=== PATIENT | male | born 1955 | race African-American/Black ===

== ENCOUNTER 2016-12-25 10:21 | Observation (INO) | payer OTHER ==
[~2016-12-25] VITALS: Ht 172.7 cm; Wt 64.0 kg
[2016-12-25] VITALS (11 sets, daily range): BP systolic 158–199; BP diastolic 81–99; PULSE 83–92; RESP 16–18; TEMP 95.9–98.1; O2SAT 94–99
[~2016-12-25 10:21] MED LIST: ADVA100A INH; AMLO10TA2 PO; ASPI1TAB69 PO; ATOR40TA16 PO; CLOT1CRE6 TOPICAL; EMTR1TAB PO; INSU0.5M12; LANTUS2P SQ; LIDO1SOL8 SWISH-SWAL; LISI40TA PO; METO100T PO; NICO7DIS5 T-DERMAL; OLAN2.5T PO; PROT40TA PO
[2016-12-25 11:08] LABS: AUTOMATED NEUTROPHIL # 4.8 TH/MM3 (1.8-7.7); BASOPHIL % 0.3 % (0.0-2.0); EOSINOPHIL % 0.6 % (0.0-4.0); HEMATOCRIT 47.6 % (39.0-51.0); HEMO FLAGS DIFF FINAL; LYMPH % 22.9 % (9.0-44.0); LYMPHOCYTE # 1.6 TH/MM3 (1.0-4.8); MEAN CORPUSCULAR HEMOGLOBIN 26.6 PG (27.0-34.0); MEAN CORPUSCULAR HGB CONC 33.6 % (32.0-36.0); MONO % 8.2 % (0.0-8.0); PLATELET COUNT 183 TH/MM3 (150-450); RED BLOOD COUNT 6.03 MIL/MM3 (4.50-5.90); RED CELL DISTRIBUTION WIDTH 13.6 % (11.6-17.2)
[2016-12-25 11:15] LABS: APTT (PATIENT) 25.1 SEC (24.3-30.1); INTERNATIONAL NORMALIZED RATIO 0.9 RATIO; PROTHROMBIN TIME - PATIENT 10.1 SEC (9.8-11.6)
--- NOTE | 2016-12-25 11:20 | RADRPT ---
EXAM DATE/TIME: 12/25/2016 11:06 [facility] COMPARISON: No previous studies available for comparison. INDICATIONS : Left upper rib pain. Fall 2 weeks ago. MEDICAL HISTORY : Myocardial infarction. Chronic obstructive pulmonary disease. Hypercholestero lemia. Hypertension. HIV. Smoker. SURGICAL HISTORY : Colostomy. Bowel resection. Left above knee amputation. ENCOUNTER: Initial ACUITY: 2 weeks PAIN SCORE: 6/10 LOCATION: Left upper ribs FINDINGS: Multiple views of the left ribs were performed. There is no evidence of displaced fracture. No dest ructive lesions or areas of periosteal thickening are seen. Expiratory view of the chest is negative for pneumothorax. The mediastinal structures are midline. CONCLUSION: No acute rib fracture seen. Fransisco Carter MD on December 25, 2016 at 11:18 Board Certified Radiologist. This report was verified electronically.
[2016-12-25 12:20] LABS: ANION GAP 12 MEQ/L (5-15); AST (GOT) 13 U/L (15-37); BICARBONATE 20.5 MEQ/L (21.0-32.0); BLOOD UREA NITROGEN 26 MG/DL (7-18); CHLORIDE 101 MEQ/L (98-107); GLOMERULAR FILTRATION RATE 73 ML/MIN (>89); SODIUM (NA) 133 MEQ/L (136-145)
[2016-12-25 12:26] LABS: ALKALINE PHOSPHATASE 98 U/L (45-117); ALT (GPT) 26 U/L (12-78); TOTAL BILIRUBIN ADULT 0.5 MG/DL (0.2-1.0)
[2016-12-25 12:28] LABS: CREATINE KINASE 44 U/L (39-308)
--- NOTE | 2016-12-25 12:57 | PD ---
HPI Chief Complaint: Chest Pain Time Seen by Provider: 10:40 Travel History International Travel<30 days: No Contact w/Intl Traveler<30days: No Traveled to known affect area: No History of Present Illness HPI 61-year-old male complains of left-sided chest pain. Patient states that he fell on the left side 2 weeks ago. Patient states that he had persistent sharp pain localized left chest. Patient denies any pain radiation. Patient states the pain is worse with deep breathing. Patient denies any nausea vomiting diaphoresis. Patient states that he had intermittent coughing congestion. Patient denies any fever chills. Patient has history hypertension, diabetes, dyslipidemia. Patient is a smoker. On a scale of 1-10 the pain is a 9. Patient was admitted to [place] with chest pain in September and had a normal treadmill stress test and chemical stress test. Patient also has history HIV, left AKA. PFSH Past Medical History Asthma: Yes Autoimmune Disease: Yes (hiv+) Blood Disorders: No Heart Rhythm Problems: No Cancer: No Cardiac Catheterization: No Cardiovascular Problems: Yes High Cholesterol: Yes Chest Pain: Yes Congestive Heart Failure: No COPD: Yes Coronary Artery Disease: Yes Diabetes: Yes Patient Takes Glucophage: No Diminished Hearing: No Endocrine: Yes Gastrointestinal Disorders: Yes (colostomy and reversal) Genitourinary: No Hypertension: Yes Immune Disorder: Yes Musculoskeletal: Yes (LEFT AKA) Neurologic: No Psychiatric: No Reproductive: No Respiratory: Yes (COPD) Immunizations Current: Yes Sleep Apnea: No Thyroid Disease: No Influenza Vaccination: No Past Surgical History Abdominal Surgery: Yes (abd cyst removed 2008, BOWEL RESECTION, COLOSTOMY AND REVERSAL) Coronary Artery Bypass Graft: No Other Surgery: Yes (L BKA) Family History Family Myocardial Infarction: Yes Social History Alcohol Use: Yes (OCCASIONALLY) Tobacco Use: Yes (OCC) Substance Use: No (HX OF use cocaine daily) Allergies-Medications (Allergen,Severity, Reaction): Coded Allergies: Red Dyes - Various (Verified Allergy, Severe, Bradycardia, 09/19/16) Reported Meds & Prescriptions Reported Meds & Active Scripts Active Insulin Syringe/0.5ML/31G X 02/26" 1 Mis Mis 1 Box .ROUTE DIRECTED Reported Advair Diskus Inh (Fluticasone-Salmeterol Inh) 100-50 Mcg/Blist Aer 1 Puff INH BID Rinse mouth after use. Amlodipine (Amlodipine Besylate) 10 Mg Tab 10 Mg PO DAILY Aspirin 81 Mg Tabdr 81 Mg PO DAILY Atorvastatin (Atorvastatin Calcium) 40 Mg Tab 40 Mg PO HS Clotrimazole Anti-Fungal Topical (Clotrimazole) 1% Cream 1 Applic TOPICAL BID Truvada (Emtricitabine-Tenofovir Disoproxil Fumarate) 200-300 Mg Tab 1 Tab PO DAILY Lidocaine Viscous Liq 2 % Liqd 10 Ml SWISH-SWAL Q6HR PRN Lisinopril 40 Mg Tab 40 Mg PO DAILY Metoprolol Tartrate 100 Mg Tab 100 Mg PO BID Nicoderm CQ Patch (Nicotine) 7 Mg/24 Hr Patch 7 Mg T-DERMAL DAILY Olanzapine 2.5 Mg Tab 2.5 Mg PO HS Protonix (Pantoprazole Sodium) 40 Mg Tab 40 Mg PO DAILY Lantus Inj (Insulin Glargine) 1,000 Unit/10 Ml Vial 20 Units SQ BID Review of Systems General / Constitutional: No: Fever Eyes: No: Visual changes HENT: No: Headaches Cardiovascular: Positive: Chest Pain or Discomfort Respiratory: No: Shortness of Breath Gastrointestinal: No: Abdominal Pain Genitourinary: No: Dysuria Musculoskeletal: No: Pain Skin: No Rash Neurologic: No: Weakness Psychiatric: No: Depression Endocrine: No: Polydipsia Hematologic/Lymphatic: No: Easy Bruising Physical Exam Narrative GENERAL: Well-nourished, well-developed patient. SKIN: Warm and dry. HEAD: Normocephalic. EYES: No scleral icterus. No injection or drainage. NECK: Supple, trachea midline. No JVD or lymphadenopathy. CARDIOVASCULAR: Regular rate and rhythm without murmurs, gallops, or rubs. RESPIRATORY: Breath sounds equal bilaterally. No accessory muscle use. GASTROINTESTINAL: Abdomen soft, non-tender, nondistended. MUSCULOSKELETAL: Patient had reproducible moderate tenderness on palpation left chest wall. No crepitus no deformity. BACK: Nontender without obvious deformity. No CVA tenderness. Data Data Last Documented VS Vital Signs Date Time Temp Pulse Resp B/P Pulse Ox O2 Delivery O2 Flow Rate FiO2 12/25/16 11:14 83 16 178/99 98 Room Air 12/25/16 10:23 97.6 Orders Complete Blood Count With Diff (12/25/16 10:49) Comprehensive Metabolic Panel (12/25/16 10:49) Creatine Kinase (Cpk) (3/14/17 10:49) Troponin I (12/25/16 10:49) Prothrombin Time / Inr (Pt) (12/25/16 10:49) Act Partial Throm Time (Ptt) (12/25/16 10:49) Iv Access Insert/Monitor (12/25/16 10:49) Ecg Monitoring (12/25/16 10:49) Oximetry (12/25/16 10:49) Ribs, Uni (W/Exp Cxr-Min 3vw) (12/25/16 10:49) Electrocardiogram (12/25/16 08:38) Labs Laboratory Tests Test 12/25/16 12/25/16 10:53 11:40 White Blood Count 7.0 TH/MM3 Red Blood Count 6.03 MIL/MM3 Hemoglobin 16.0 GM/DL Hematocrit 47.6 % Mean Corpuscular Volume 79.0 FL Mean Corpuscular Hemoglobin 26.6 PG Mean Corpuscular Hemoglobin 33.6 % Concent Red Cell Distribution Width 13.6 % Platelet Count 183 TH/MM3 Mean Platelet Volume 9.4 FL Neutrophils (%) (Auto) 68.0 % Lymphocytes (%) (Auto) 22.9 % Monocytes (%) (Auto) 8.2 % Eosinophils (%) (Auto) 0.6 % Basophils (%) (Auto) 0.3 % Neutrophils # (Auto) 4.8 TH/MM3 Lymphocytes # (Auto) 1.6 TH/MM3 Monocytes # (Auto) 0.6 TH/MM3 Eosinophils # (Auto) 0.0 TH/MM3 Basophils # (Auto) 0.0 TH/MM3 CBC Comment DIFF FINAL Differential Comment Prothrombin Time 10.1 SEC Prothromb Time International 0.9 RATIO Ratio Activated Partial 25.1 SEC Thromboplast Time Sodium Level 133 MEQ/L Potassium Level 4.0 MEQ/L Chloride Level 101 MEQ/L Carbon Dioxide Level 20.5 MEQ/L Anion Gap 12 MEQ/L Blood Urea Nitrogen 26 MG/DL Creatinine 1.22 MG/DL Estimat Glomerular Filtration 73 ML/MIN Rate Random Glucose 376 MG/DL Calcium Level 9.2 MG/DL Total Bilirubin 0.5 MG/DL Aspartate Amino Transf 13 U/L (AST/SGOT) Alanine Aminotransferase 26 U/L (ALT/SGPT) Alkaline Phosphatase 98 U/L Total Creatine Kinase 44 U/L Troponin I 0.06 NG/ML Total Protein 9.0 GM/DL Albumin 3.4 GM/DL MDM Medical Decision Making Medical Screen Exam Complete: Yes Emergency Medical Condition: Yes Interpretation(s) 12:54 PM. X-ray left rib shows no acute bony injury. No hemopneumothorax. CBC within normal limit. Sodium 133. BUN 26. Glucose 376. Troponin 0.06. Differential Diagnosis Differential diagnosis including atypical chest pain, rib fracture, hemopneumothorax, angina, MA, PE, pneumothorax. Narrative Course 61-year-old male with left-sided chest pain. Status post fall. Diagnosis Primary Impression: Chest pain, atypical Additional Impression: Elevated troponin Hector Silva MD Dec 25, 2016 12:57
[2016-12-25] MEDS ORDERED: SODIUM CHLORIDE 0.9% FLUSH 5 ML FLUSH IV PRN (13:45)
[2016-12-25] MEDS ORDERED: DEXTROSE 50% IN WATER 50 ML VIAL(D50) IV PUSH PRN (14:00)
[2016-12-25] MEDS ORDERED: GLUCAGON 1 MG/ML VIAL OTHER PRN (14:00)
[2016-12-25] MEDS: NICOTINE 21 MG/24 HR PATCH TD SCH (14:04)
[2016-12-25] MEDS: HEPARIN SODIUM - SQ 10,000 UNITS/ML VIAL SQ SCH ×2 (14:09→21:22)
--- NOTE | 2016-12-25 14:39 | HHI.HP ---
[facility] Service Family Medicine Primary Care Physician Steve Bucio MD Admission Diagnosis chest pain. Elevated troponin. Diagnoses: International Travel<30 Days: No Contact w/Intl Traveler<30days: No Known Affected Area: No History of Present Illness Mr. Dumont is a 61 year old male with a history of HIV, T2DM, HTN, HLP, and L AKA. Presented to the [place] ED with complaints of left-sided chest pain. Patient reports that he fell while crossing the street in his wheelchair 2 weeks ago. He hit a curb and fell out of the chair, he hit his left elbow chest and head during this fall. He says he has had a persistent sharp pain in his left chest since this fall. He denies any radiating pain to his shoulder or arm or jaw. He denies any nausea vomiting or diaphoresis with these symptoms. He also is complaining about severe headache that has been occurring since the fall, and worsened vision. He is not completely certain if the vision is worse because he's been without his glasses for quite some time. The leg pain is consistent on the left occipital region of his head, this is where he hit his head when he fell. He has been mildly confused since the fall as well. Of note patient has been recently hospitalized in September for chest pain with normal treadmill test and chemical stress test Review of Systems Constitutional: COMPLAINS OF: Dizziness, DENIES: Diaphoretic episodes, Fever, Weight gain, Weight loss, Change in appetite Eyes: COMPLAINS OF: Blurred vision, Vision loss, DENIES: Eye pain, Photosensitivity, Double Vision Ears, nose, mouth, throat: DENIES: Tinnitus, Hearing loss, Throat pain, Hoarseness, Ear Pain, Running Nose, Sinus Pain, Toothache Respiratory: COMPLAINS OF: Cough, Shortness of breath, DENIES: Wheezing, Sputum production Cardiovascular: COMPLAINS OF: Chest pain, Dyspnea on Exertion, DENIES: Syncope , Lower Extremity Edema Gastrointestinal: DENIES: Abdominal pain, Diarrhea, Nausea, Vomiting Musculoskeletal: COMPLAINS OF: Joint pain, Stiffness, Neck pain, DENIES: Back pain Integumentary: DENIES: Rash Hematologic/lymphatic: DENIES: Bruising Immunologic/allergic: DENIES: Eczema Neurologic: COMPLAINS OF: Headache, DENIES: Abnormal gait, Localized weakness , Seizures, Speech Problems, Tremor, Poor Balance Psychiatric: DENIES: Anxiety, Depression Other AKA pain Past Family Social History Past Medical History Past Medical History: HIV HTN Hyperlipidemia Type 2 Diabetes Asthma COPD (per EMR, patient is unsure) Tobacco abuse Left above knee amputation (secondary to unspecified complication of DM) Unspecified back pain (sees pain management) Past Surgical History Patient reports unspecified abdominal surgery, patient states that he had a colon resection (per EMR- 2008 abdominal cyst removal with resection, ostomy, and subsequent reversal) Left above knee amputation Reported Medications Reported Meds & Active Scripts Active Insulin Syringe/0.5ML/31G X 02/26" 1 Mis Mis 1 Box .ROUTE DIRECTED Reported Advair Diskus Inh (Fluticasone-Salmeterol Inh) 100-50 Mcg/Blist Aer 1 Puff INH BID Rinse mouth after use. Amlodipine (Amlodipine Besylate) 10 Mg Tab 10 Mg PO DAILY Aspirin 81 Mg Tabdr 81 Mg PO DAILY Atorvastatin (Atorvastatin Calcium) 40 Mg Tab 40 Mg PO HS Clotrimazole Anti-Fungal Topical (Clotrimazole) 1% Cream 1 Applic TOPICAL BID Truvada (Emtricitabine-Tenofovir Disoproxil Fumarate) 200-300 Mg Tab 1 Tab PO DAILY Lidocaine Viscous Liq 2 % Liqd 10 Ml SWISH-SWAL Q6HR PRN Lisinopril 40 Mg Tab 40 Mg PO DAILY Metoprolol Tartrate 100 Mg Tab 100 Mg PO BID Nicoderm CQ Patch (Nicotine) 7 Mg/24 Hr Patch 7 Mg T-DERMAL DAILY Olanzapine 2.5 Mg Tab 2.5 Mg PO HS Protonix (Pantoprazole Sodium) 40 Mg Tab 40 Mg PO DAILY Lantus Inj (Insulin Glargine) 1,000 Unit/10 Ml Vial 20 Units SQ BID Allergies: Coded Allergies: Red Dyes - Various (Verified Allergy, Severe, Bradycardia, 09/19/16) Family History Noncontributory Social History Tobacco- ~37 years smoking, varied PPD based on finances (3cig- 1+ pks) Alcohol- 2-3 beers a day currently, patient reports previous frequent consumption Illicit Drugs- per EMR, crack cocaine and marijuana Patient lives with his sister, gets assistance from her Physical Exam Vital Signs Vital Signs Date Time Temp Pulse Resp B/P Pulse Ox O2 Delivery O2 Flow Rate FiO2 12/25/16 14:03 84 16 199/96 97 Room Air 12/25/16 11:14 83 16 178/99 98 Room Air 12/25/16 10:41 85 16 191/93 98 12/25/16 10:35 86 16 191/93 Room Air 12/25/16 10:23 97.6 87 16 180/87 99 Physical Exam GENERAL: This is a well-nourished, well-developed patient, in no apparent distress. SKIN: No rashes, ecchymoses or lesions. Cool and dry. HEAD: Atraumatic. Normocephalic. Scalp tenderness in the left occipital region. EYES: Pupils equal round and reactive. Extraocular motions intact. No scleral icterus. No injection or drainage. ENT: Nose without bleeding, purulent drainage or septal hematoma. Throat without erythema, tonsillar hypertrophy or exudate. Poor dentition Uvula midline. Airway patent. NECK: Trachea midline. No JVD or lymphadenopathy. Supple, nontender, no meningeal signs. CARDIOVASCULAR: Regular rate and rhythm without murmurs, gallops, or rubs. Tender to palpation, illicits this sharp pain the patient is complaining about, RESPIRATORY: Clear to auscultation. Breath sounds equal bilaterally. No wheezes , rales, or rhonchi. GASTROINTESTINAL: Abdomen soft, non-tender, nondistended. No hepato-splenomegaly , or palpable masses. No guarding. MUSCULOSKELETAL: Left AKA. Extremities without clubbing, cyanosis, or edema. No joint tenderness, effusion, or edema noted. No calf tenderness. Negative Homans sign bilaterally. NEUROLOGICAL: Awake and alert and oriented 3. Cranial nerves II through XII grossly intact. Normal speech. Laboratory Laboratory Tests Test 12/25/16 12/25/16 10:53 11:40 White Blood Count 7.0 Red Blood Count 6.03 Hemoglobin 16.0 Hematocrit 47.6 Mean Corpuscular Volume 79.0 Mean Corpuscular Hemoglobin 26.6 Mean Corpuscular Hemoglobin 33.6 Concent Red Cell Distribution Width 13.6 Platelet Count 183 Mean Platelet Volume 9.4 Neutrophils (%) (Auto) 68.0 Lymphocytes (%) (Auto) 22.9 Monocytes (%) (Auto) 8.2 Eosinophils (%) (Auto) 0.6 Basophils (%) (Auto) 0.3 Neutrophils # (Auto) 4.8 Lymphocytes # (Auto) 1.6 Monocytes # (Auto) 0.6 Eosinophils # (Auto) 0.0 Basophils # (Auto) 0.0 CBC Comment DIFF FINAL Differential Comment Prothrombin Time 10.1 Prothromb Time International 0.9 Ratio Activated Partial 25.1 Thromboplast Time Sodium Level 133 Potassium Level 4.0 Chloride Level 101 Carbon Dioxide Level 20.5 Anion Gap 12 Blood Urea Nitrogen 26 Creatinine 1.22 Estimat Glomerular Filtration 73 Rate Random Glucose 376 Calcium Level 9.2 Total Bilirubin 0.5 Aspartate Amino Transf 13 (AST/SGOT) Alanine Aminotransferase 26 (ALT/SGPT) Alkaline Phosphatase 98 Total Creatine Kinase 44 Troponin I 0.06 Total Protein 9.0 Albumin 3.4 Result Diagram: 12/25/16 1053 12/25/16 1140 Imaging No acute rib fracture seen on x-ray Assessment and Plan Assessment and Plan This is a 61 year old male with a history of HIV, T2DM, HTN, HLP, and L AKA. Being admitted for ACS rule out with possible concussion versus subdural hematoma versus skull contusion Code Status Full code Discussed Condition With Will discuss with FPTS team Problem List: (1) Chest pain, atypical Status: Acute Plan: Patient being admitted for ACS rule out. Initial troponin elevated at 0.06. Complaining of persistent chest pain for 2 weeks. Pain elicited with palpation * Placed in 24-hour * Cardiology consult * Trending troponins * Trending CK-MB * Trending EKG * Telemetry * CBC, BMP ordered for the a.m. * Lipid profile ordered for the a.m. (2) Musculoskeletal chest pain Status: Acute Plan: Musculoskeletal chest pain likely contusion versus costochondritis * Lortab 5/325 mg every 6 hours when necessary pain 1-6 * Lortab 10/325 mg every 6 hours when necessary pain 7-10 (3) Headache Status: Acute Plan: Patient combining of a severe headache worsening vision, mild confusion since fall and hitting his head. Pain is specific to the left occipital region. Concern for concussion versus subdural hematoma versus skull contusion. 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 Plan: Patient has a history of chronic phantom pain after amputation * See pain control above (7) Hypertension Status: Acute Plan: Long-standing history of hypertension * Continue amlodipine * Continue lisinopril * Continued metoprolol (8) Nutrition, metabolism, and development symptoms Status: Acute Plan: Diabetic diet Out of bed with assistance DVT prophylaxis with heparin Monitor electrolytes and replace accordingly CODE STATUS: Full code Disposition: Expected discharge tomorrow pending ACS rule out Problem Qualifiers (1) Type 2 diabetes mellitus: Qualified Code: E11.59 - Type 2 diabetes mellitus with other circulatory complication, with long-term current use of insulin Zan Newton MD R2 Dec 25, 2016 14:39
[2016-12-25] MEDS: ACETAMINOPHEN/HYDROcodone 325 MG/10 MG TAB PO PRN ×2 (15:00→20:39)
[2016-12-25] MEDS ORDERED: NITROGLYCERIN 0.4 MG SL 25 TABS/BTL SL PRN (15:00)
[2016-12-25] MEDS ORDERED: ACETAMINOPHEN/HYDROcodone 325 MG/5 MG TAB PO PRN (15:00)
--- NOTE | 2016-12-25 15:08 | RADRPT ---
EXAM DATE/TIME: 12/25/2016 14:50 [facility] COMPARISON: No previous studies available for comparison. INDICATIONS : Fall two weeks ago hit left side of head. RADIATION DOSE: 40.25 CTDIvol (mGy) MEDICAL HISTORY : Hypertension. Chronic obstructive pulmonary disease. HIV.diabetes SURGICAL HISTORY : Colon resection. Colostomy. ENCOUNTER: Initial ACUITY: 2 weeks PAIN SCALE: 9/10 LOCATION: cranial TECHNIQUE: Multiple contiguous axial images were obtained of the head. Using automated exposure control and adj ustment of the mA and/or kV according to patient size, radiation dose was kept as low as reasonably a chievable to obtain optimal diagnostic quality images. FINDINGS: CEREBRUM: There is an area of encephalomalacia involving the right occipital lobe. A small chronic lacunar infa rction is seen involving left basal ganglia. The ventricles are normal for age. No evidence of midli ne shift, mass lesion, hemorrhage or acute infarction. No extra-axial fluid collections are seen. POSTERIOR FOSSA: The cerebellum and brainstem are intact. The 4th ventricle is midline. The cerebellopontine angle i s unremarkable. EXTRACRANIAL: The visualized portion of the orbits is intact. An old left lamina papyracea fracture is seen. SKULL: The calvaria is intact. No evidence of skull fracture. CONCLUSION: 1. No acute intracranial abnormality. 2. Encephalomalacia involving the right occipital lobe. Miguelangel Bolanos Jr., MD on December 25, 2016 at 15:03 Board Certified Radiologist. This report was verified electronically.
[2016-12-25] MEDS: INSULIN ASPART SUPPLEMENTAL SCALE SQ SCH ×2 (15:19→18:25)
[2016-12-25] MEDS ORDERED: hydrALAZINE HCL 20 MG/ML VIAL IV PRN (16:45)
[2016-12-25] MEDS ORDERED: cloNIDine HCL 0.1 MG TAB PO PRN (16:45)
[2016-12-25] MEDS: hydrALAZINE HCL 100 MG TAB PO SCH ×2 (16:58→21:21)
--- NOTE | 2016-12-25 17:28 | MB ---
cc: KATELYN SARAVIA DATE OF CONSULTATION: 12/25/2016 REASON FOR CONSULTATION: Chest pain. HISTORY OF PRESENT ILLNESS: This is a 61 year-old gentleman with history of HIV, type 2 Diabetes, hypertension, hyperlipidemia. Left above the knee amputation and presented to the emergency department with complaints of left sided chest pain. Apparently he fell while crossing the street on his wheelchair. He hit the left side of his chest and his left elbow. Since that time he has had persistent chest pain. It is tender to palpation and he has had not associated shortness of breath or diaphoresis. He had the chemical stress test not too long ago, back in September 14, that was unremarkable. His troponin was intermediate in range and we were consulted for further recommendations. PAST MEDICAL HISTORY: 1. HIV 2. Hypertension 3. Hyperlipidemia 4. Type 2 diabetes 5. Asthma. 6. Chronic obstructive pulmonary disease 7. Left above-knee amputation. 8. Reported medications, Advair. 9. Amlodipine 10. Aspirin. 11. Atorvastatin 12. Lamictal 13. Truvada 14. Lidocaine 15. Lisinopril 16. Metoprolol 17. Nicoderm 18. Lanthopine 19. Protonix 20. Lantus ALLERGIES RED DYE FAMILY HISTORY: Denies any family history of sudden cardiac . SOCIAL HISTORY: Tobacco use, he smokes three cigarettes per day. He smoked for 37 years a pack per day. He drinks about two to three beers per day. He has history of crack cocaine and marijuana use. REVIEW OF SYSTEMS 12 point review of systems was preformed. Without any evidence of other than in the history of present illness. PHYSICAL EXAMINATION: VITAL SIGNS: Temperature 95.0, heart rate 87, blood pressure 176/93 mmHg. IN GENERAL; alert and oriented time s three, no acute distress. HEAD, EYES, EARS, NOSE, AND THROAT: Pupils equal, round, reactive to light and accommodation, extraocular movements intact. NECK: No jugular venous distention, no thyromegaly, no lymphadenopathy. No carotid bruits. LUNGS: Normal auscultation bilaterally. CARDIOVASCULAR SYSTEM: Regular rate and rhythm, without murmurs, rubs or gallops. NEUROLOGIC: Cranial nerves II through XII intact. EXTREMITIES: Lower extremities are grossly intact. LABORATORY FINDINGS: White blood count 7.0, hemoglobin 16, platelet count 183, INR 0.9, sodium 132, potassium 4.0, blood urea nitrogen 26, creatinine 1.22, troponin 0.06. RADIOLOGIC: Electrocardiogram sinus rhythm, ST-T wave abnormalities, no significant change compared with prior electrocardiogram. ASSESSMENT: 1. Chest pain, noncardiac. 2. Diabetes, hypertension, hyperlipidemia. PLAN: The patients symptoms are clearly not cardiac in etiology, he has tenderness with palpation after recent trauma to the left chest wall/sternum. Electrocardiogram is relatively unremarkable without change. His troponin 0.06 is not greatly concerning without clinical correlation of suggestive anginal symptoms. At this point I would not pursue any further cardiac testing such as stress test given his recent unremarkable stress test back in September 2016. His blood pressure is significantly elevated, he is on Amlodipine 10 mg daily. Lisinopril 40 mg per day. Metoprolol 100 mg twice a day. Would probably avoid clonidine for concerns of reflux hypertension if he misses a dose. We will add Hydralazine to his regimen. Thank you very much. Will sign off. call with questions MD AMERICA Cornelius/maryellen /4:33 PM /4:40 PM JUVENAL
[2016-12-25] MEDS: METOPROLOL TARTRATE 100 MG TAB PO SCH (20:38)
[2016-12-25] MEDS: INSULIN DETEMIR 100 UNITS/ML VIAL SQ SCH (20:39)
[2016-12-25] MEDS ORDERED: TEMAZEPAM 7.5 MG CAP PO PRN (21:00)
[2016-12-25] MEDS ORDERED: SALMETEROL 50 MCG INH SCH (21:00)
[2016-12-25] MEDS ORDERED: OLANZapine 2.5 MG TAB PO SCH (21:00)
[2016-12-25] MEDS: SODIUM CHLORIDE 0.9% FLUSH 5 ML FLUSH IV SCH (21:00)
[2016-12-25] MEDS ORDERED: ATORVASTATIN 40 MG TAB PO SCH (21:00)
[2016-12-25] MEDS ORDERED: FLUTICASONE PROPIONATE INH SCH (21:00)
[2016-12-25] MEDS: BUDESONIDE-FORMOTEROL 80/4.5 MCG INHALER INH SCH (21:21)
[2016-12-26 00:46] VITALS: BP 149/73; PULSE 84; RESP 18; TEMP 98.4; O2SAT 97
[2016-12-26 02:35] VITALS: PULSE 71
[2016-12-26 04:31] VITALS: BP 146/74; PULSE 88; RESP 18; TEMP 98.2; O2SAT 97
[2016-12-26] MEDS: HEPARIN SODIUM - SQ 10,000 UNITS/ML VIAL SQ SCH (05:58)
[2016-12-26] MEDS: hydrALAZINE HCL 100 MG TAB PO SCH (05:58)
[2016-12-26] MEDS: INSULIN ASPART SUPPLEMENTAL SCALE SQ SCH (05:59)
[2016-12-26 06:01] LABS: AUTOMATED NEUTROPHIL # 3.9 TH/MM3 (1.8-7.7); BASOPHIL % 0.4 % (0.0-2.0); EOSINOPHIL # 0.1 TH/MM3 (0-0.4); EOSINOPHIL % 0.9 % (0.0-4.0); HEMATOCRIT 43.8 % (39.0-51.0); HEMO FLAGS DIFF FINAL; LYMPH % 26.6 % (9.0-44.0); LYMPHOCYTE # 1.6 TH/MM3 (1.0-4.8); MEAN CELL VOLUME 79.5 FL (80.0-100.0); MEAN CORPUSCULAR HEMOGLOBIN 26.1 PG (27.0-34.0); MEAN CORPUSCULAR HGB CONC 32.8 % (32.0-36.0); MONO % 8.4 % (0.0-8.0); NEUT % 63.7 % (16.0-70.0); PLATELET COUNT 192 TH/MM3 (150-450); RED CELL DISTRIBUTION WIDTH 13.8 % (11.6-17.2); WHITE BLOOD COUNT 6.1 TH/MM3 (4.0-11.0)
[2016-12-26 06:30] LABS: BICARBONATE 22.8 MEQ/L (21.0-32.0); HDL CHOLESTEROL 44.7 MG/DL (40.0-60.0); POTASSIUM 4.1 MEQ/L (3.5-5.1)
--- NOTE | 2016-12-26 07:30 | EKG ---
Date Performed: 12/25/2016 Time Performed: 08:38:30 PTAGE: 61 years EKG: Sinus rhythm SEPTAL MYOCARDIAL INFARCTION Septal ST elevation less prominent than prior ekg, likely no clinical c sofy PREVIOUS TRACING : 09/19/2016 16.04 DOCTOR: Zan Garcia Interpretating Date/Time 12/26/2016 07:29:55
[2016-12-26 08:00] VITALS: BP 125/63; PULSE 72; RESP 17; TEMP 96.6; O2SAT 96
[2016-12-26] MEDS ORDERED: PANTOPRAZOLE SOD 40 MG DELAYED RELEASE TAB PO SCH (09:00)
[2016-12-26] MEDS ORDERED: ASPIRIN 325 MG TAB PO SCH (09:00)
[2016-12-26] MEDS ORDERED: LISINOPRIL 20 MG TAB PO SCH (09:00)
[2016-12-26] MEDS: NICOTINE 21 MG/24 HR PATCH TD SCH (09:00)
[2016-12-26] MEDS ORDERED: REMOVE OLD PATCH TD SCH (09:00)
[2016-12-26] MEDS ORDERED: EMTRICITABINE/TENOFOVIR 200 MG/300 MG TAB PO SCH (09:00)
[2016-12-26] MEDS ORDERED: NORC5TAB PO (09:08)
--- NOTE | 2016-12-26 09:09 | HHI.DCPOC ---
Discharge Care Plan Diagnosis: (1) Costochondritis Goals to Promote Your Health * To prevent worsening of your condition and complications * To maintain your health at the optimal level Directions to Meet Your Goals Take your medications as prescribed Follow your dietary instruction Follow activity as directed Keep your appointments as scheduled Take your immunizations and boosters as scheduled If your symptoms worsen call your PCP, if no PCP go to Urgent Care Center or Emergency Room Smoking is Dangerous to Your Health. Avoid second hand smoke Call the 24-hour hour crisis hotline for domestic abuse at Tyree Wolfe MD R3 Dec 26, 2016 09:09
--- NOTE | 2016-12-26 09:13 | HHI.HP ---
[facility] Service Family Medicine Primary Care Physician Steve Bucio MD Admission Diagnosis chest pain. Elevated troponin. Diagnoses: (1) Chest pain, atypical Diagnosis: Principal (2) Musculoskeletal chest pain Diagnosis: Principal (3) Headache Diagnosis: Principal (4) HIV (human immunodeficiency virus infection) Diagnosis: Principal (5) Type 2 diabetes mellitus Diagnosis: Principal (6) Phantom pain after amputation of lower extremity Diagnosis: Principal (7) Hypertension Diagnosis: Principal (8) Nutrition, metabolism, and development symptoms Diagnosis: Principal International Travel<30 Days: No Contact w/Intl Traveler<30days: No Known Affected Area: No History of Present Illness Mr. Sachin Dumont is a 61 year old male with a history of HIV, T2DM, HTN, HLP, and L AKA. Presented to the [facility] with complaints of left-sided chest pain. Patient reports that he fell while crossing the street in his wheelchair 2 weeks ago. He hit a curb and fell out of the chair, he hit his left elbow chest and head during this fall. He says he has had a persistent sharp pain in his left chest since this fall. He denies any radiating pain to his shoulder or arm or jaw. He denies any nausea vomiting or diaphoresis with these symptoms. He also is complaining about severe headache that has been occurring since the fall, and worsened vision. He is not completely certain if the vision is worse because he's been without his glasses for quite some time. The pain is consistent on the left occipital region of his head, this is where he hit his head when he fell. He has been mildly confused since the fall as well. He has a very hard time pushing his wheelchair with his one leg (the left leg is amputated). This is contributing to his chest pain as he injured his ribs and muscle. He was advised to talk to his outpt Physician to obtain a motorized wheelcahair as he cannot push the one he has anymore and was not safe as he fell out of it. Of note patient has been recently hospitalized in September for chest pain with normal treadmill test and chemical stress test. Review of Systems Cardiovascular: COMPLAINS OF: Chest pain, DENIES: Lower Extremity Edema Other Constitutional: COMPLAINS OF: Dizziness, DENIES: Diaphoretic episodes, Fever, Weight gain, Weight loss, Change in appetite Eyes: COMPLAINS OF: Blurred vision, Vision loss, DENIES: Eye pain, Photosensitivity, Double Vision Ears, nose, mouth, throat: DENIES: Tinnitus, Hearing loss, Throat pain, Hoarseness, Ear Pain, Running Nose, Sinus Pain, Toothache Respiratory: COMPLAINS OF: Cough, Shortness of breath, DENIES: Wheezing, Sputum production Cardiovascular: COMPLAINS OF: Chest pain, Dyspnea on Exertion, DENIES: Syncope , Lower Extremity Edema Gastrointestinal: DENIES: Abdominal pain, Diarrhea, Nausea, Vomiting Musculoskeletal: COMPLAINS OF: Joint pain, Stiffness, Neck pain, DENIES: Back pain Integumentary: DENIES: Rash Hematologic/lymphatic: DENIES: Bruising Immunologic/allergic: DENIES: Eczema Neurologic: COMPLAINS OF: Headache, DENIES: Abnormal gait, Localized weakness , Seizures, Speech Problems, Tremor, Poor Balance Psychiatric: DENIES: Anxiety, Depression Other AKA pain Past Family Social History Past Medical History Past Medical History: HIV HTN Hyperlipidemia Type 2 Diabetes Asthma COPD (per EMR, patient is unsure) Tobacco abuse Left above knee amputation (secondary to unspecified complication of DM) Unspecified back pain (sees pain management) Past Surgical History Patient reports unspecified abdominal surgery, patient states that he had a colon resection (per EMR- 2008 abdominal cyst removal with resection, ostomy, and subsequent reversal) Left above knee amputation Allergies: Coded Allergies: Red Dyes - Various (Verified Allergy, Severe, Bradycardia, 09/19/16) Family History Noncontributory Social History Tobacco- ~37 years smoking, varied PPD based on finances (3cig- 1+ pks) Alcohol- 2-3 beers a day currently, patient reports previous frequent consumption Illicit Drugs- per EMR, crack cocaine and marijuana Patient lives with his sister, gets assistance from her Physical Exam Vital Signs Vital Signs Date Time Temp Pulse Resp B/P Pulse Ox O2 Delivery O2 Flow Rate FiO2 12/26/16 08:00 96.6 72 17 125/63 96 12/26/16 04:31 98.2 88 18 146/74 97 12/26/16 02:35 71 12/26/16 00:46 98.4 84 18 149/73 97 12/25/16 20:36 98.1 91 18 158/89 97 12/25/16 19:28 92 12/25/16 17:45 90 162/81 12/25/16 16:05 95.9 87 17 176/93 94 12/25/16 14:56 86 16 170/83 99 Room Air 12/25/16 14:41 98 21 12/25/16 14:03 84 16 199/96 97 Room Air 12/25/16 11:14 83 16 178/99 98 Room Air 12/25/16 10:41 85 16 191/93 98 12/25/16 10:35 86 16 191/93 Room Air 12/25/16 10:23 97.6 87 16 180/87 99 Physical Exam GENERAL: This is a well-nourished, well-developed patient, in no apparent distress. He is stable with his chest pain and has no new sxs. SKIN: No rashes, ecchymoses or lesions. Cool and dry. HEAD: Atraumatic. Normocephalic. Scalp tenderness in the left occipital region. EYES: Pupils equal round and reactive. Extraocular motions intact. No scleral icterus. No injection or drainage. ENT: Nose without bleeding, purulent drainage or septal hematoma. Poor dentition Airway patent. NECK: Trachea midline. No JVD or lymphadenopathy. Supple, nontender, no meningeal signs. CARDIOVASCULAR: Regular rate and rhythm without murmurs, gallops, or rubs. Tender to palpation, illicits this sharp pain the patient is complaining about, RESPIRATORY: Clear to auscultation. Breath sounds equal bilaterally. No wheezes , rales, or rhonchi. GASTROINTESTINAL: Abdomen soft, non-tender, nondistended. No hepato-splenomegaly , or palpable masses. No guarding. MUSCULOSKELETAL: Left AKA. Extremities without clubbing, cyanosis, or edema. No joint tenderness, effusion, or edema noted. No calf tenderness. Negative Homans sign bilaterally. NEUROLOGICAL: Awake and alert and oriented 3. Cranial nerves II through XII grossly intact. Normal speech. Laboratory Laboratory Tests Test 12/25/16 12/25/16 12/25/16 12/26/16 10:53 11:40 20:19 00:47 White Blood Count 7.0 Red Blood Count 6.03 Hemoglobin 16.0 Hematocrit 47.6 Mean Corpuscular Volume 79.0 Mean Corpuscular Hemoglobin 26.6 Mean Corpuscular Hemoglobin 33.6 Concent Red Cell Distribution Width 13.6 Platelet Count 183 Mean Platelet Volume 9.4 Neutrophils (%) (Auto) 68.0 Lymphocytes (%) (Auto) 22.9 Monocytes (%) (Auto) 8.2 Eosinophils (%) (Auto) 0.6 Basophils (%) (Auto) 0.3 Neutrophils # (Auto) 4.8 Lymphocytes # (Auto) 1.6 Monocytes # (Auto) 0.6 Eosinophils # (Auto) 0.0 Basophils # (Auto) 0.0 CBC Comment DIFF FINAL Differential Comment Prothrombin Time 10.1 Prothromb Time International 0.9 Ratio Activated Partial 25.1 Thromboplast Time Sodium Level 133 Potassium Level 4.0 Chloride Level 101 Carbon Dioxide Level 20.5 Anion Gap 12 Blood Urea Nitrogen 26 Creatinine 1.22 Estimat Glomerular Filtration 73 Rate Random Glucose 376 Calcium Level 9.2 Total Bilirubin 0.5 Aspartate Amino Transf 13 (AST/SGOT) Alanine Aminotransferase 26 (ALT/SGPT) Alkaline Phosphatase 98 Total Creatine Kinase 44 48 49 Troponin I 0.06 0.05 0.05 Total Protein 9.0 Albumin 3.4 Test 12/26/16 05:10 White Blood Count 6.1 Red Blood Count 5.50 Hemoglobin 14.4 Hematocrit 43.8 Mean Corpuscular Volume 79.5 Mean Corpuscular Hemoglobin 26.1 Mean Corpuscular Hemoglobin 32.8 Concent Red Cell Distribution Width 13.8 Platelet Count 192 Mean Platelet Volume 9.3 Neutrophils (%) (Auto) 63.7 Lymphocytes (%) (Auto) 26.6 Monocytes (%) (Auto) 8.4 Eosinophils (%) (Auto) 0.9 Basophils (%) (Auto) 0.4 Neutrophils # (Auto) 3.9 Lymphocytes # (Auto) 1.6 Monocytes # (Auto) 0.5 Eosinophils # (Auto) 0.1 Basophils # (Auto) 0.0 CBC Comment DIFF FINAL Differential Comment Sodium Level 135 Potassium Level 4.1 Chloride Level 102 Carbon Dioxide Level 22.8 Anion Gap 10 Blood Urea Nitrogen 33 Creatinine 1.52 Estimat Glomerular Filtration 57 Rate Random Glucose 472 Calcium Level 8.7 Triglycerides Level 423 Cholesterol Level 191 LDL Cholesterol HDL Cholesterol 44.7 Cholesterol/HDL Ratio 4.27 Result Diagram: 12/26/16 0510 12/26/16 0510 Imaging No acute rib fracture seen on x-ray Assessment and Plan Assessment and Plan This is a 61 year old male with a history of HIV, T2DM, HTN, HLP, and L AKA. Being admitted for ACS rule out with possible concussion versus subdural hematoma versus skull contusion Problem List: (1) Chest pain, atypical Status: Acute Plan: Patient being admitted for ACS rule out. Initial troponin elevated at 0.06. Complaining of persistent chest pain for 2 weeks. Pain elicited with palpation * Placed in 24-hour * Cardiology consult * Trending troponins * Trending CK-MB * Trending EKG * Telemetry * CBC, BMP ordered for the a.m. * Lipid profile ordered for the a.m. * Cardiology believes this is all musculoskeletal and he had a negative stress test very recently (2) Musculoskeletal chest pain Status: Acute Plan: Musculoskeletal chest pain likely contusion versus costochondritis * Lortab 5/325 mg every 6 hours when necessary pain 1-6 * Lortab 10/325 mg every 6 hours when necessary pain 7-10 (3) Headache Status: Acute Plan: Patient complaining of a severe headache worsening vision, mild confusion since fall and hitting his head. Pain is specific to the left occipital region. Concern for concussion versus subdural hematoma versus skull contusion. * CT head without contrast ordered * Encouraged concussion follow-up with his PCP (4) HIV (human immunodeficiency virus infection) Status: Chronic Plan: Long-standing history of HIV * Continue home HIV medications (5) Type 2 diabetes mellitus Status: Chronic Plan: Long-standing history of type 2 diabetes * Low-dose insulin sliding scale * Levemir 20 units twice a day * his glucoses are high here in the hospital, will need to have these followed as outpt. He states he has an appt with his PCP later this week. he was given levimir and will have this prior to leaving the hospital. he lives with his sister but has a hard time getting around and may not eat much when he goes home. do not want to drop his glucoses too much, he will however, need close follow up and can call his primary if he does not improve with his glucoses (6) Phantom pain after amputation of lower extremity Status: Chronic Plan: Patient has a history of chronic phantom pain after amputation * See pain control above (7) Hypertension Status: Acute Plan: Long-standing history of hypertension * Continue amlodipine * Continue lisinopril * Continued metoprolol (8) Nutrition, metabolism, and development symptoms Status: Acute Plan: Diabetic diet Out of bed with assistance will discuss with his primary Dr regarding obtaining a motorized wheelchair DVT prophylaxis with heparin Monitor electrolytes and replace accordingly CODE STATUS: Full code Disposition: Expected discharge today Problem Qualifiers (1) Headache: Qualified Code: G44.309 - Post-traumatic headache, not intractable, unspecified chronicity pattern (2) Type 2 diabetes mellitus: Qualified Code: E11.59 - Type 2 diabetes mellitus with other circulatory complication, with long-term current use of insulin (3) Hypertension: Qualified Code: I10 - Essential hypertension Nataly Villarreal MD Dec 26, 2016 09:13
[2016-12-26 09:23] VITALS: O2SAT 94
[2016-12-26] MEDS: BUDESONIDE-FORMOTEROL 80/4.5 MCG INHALER INH SCH (09:59)
[2016-12-26] MEDS: SODIUM CHLORIDE 0.9% FLUSH 5 ML FLUSH IV SCH (10:00)
[2016-12-26] MEDS: METOPROLOL TARTRATE 100 MG TAB PO SCH (10:00)
[2016-12-26] MEDS: INSULIN DETEMIR 100 UNITS/ML VIAL SQ SCH (10:01)
[2016-12-26] MEDS: ACETAMINOPHEN/HYDROcodone 325 MG/10 MG TAB PO PRN (10:06)
--- NOTE | 2016-12-26 19:45 | EKG ---
Date Performed: 12/26/2016 Time Performed: 06:05:19 PTAGE: 61 years EKG: Sinus rhythm SEPTAL MYOCARDIAL INFARCTION DIFFUSE ST-T CHANGES PREVIOUS TRACING : 12/25/2016 08.38 Compared to prior tracing no significant change DOCTOR: Kimmy Casanova Interpretating Date/Time 12/26/2016 19:45:21
[2016-12-31] MEDS ORDERED: ADVA100A INH (07:29)
[2017-01-04] MEDS ORDERED: WHEEMIS3 ×2 (09:19→09:20)
[2017-01-04] MEDS ORDERED: EMTR1TAB PO (09:19)
[2017-01-04] MEDS ORDERED: TRAZ50TA12 PO ×2 (09:19→09:20)
[2017-01-04] MEDS ORDERED: [UNRECOGNIZED DRUG - CODE] ×2 (09:19→09:20)
[2017-01-04] MEDS ORDERED: BACT800T5 PO ×2 (09:19→09:20)
[2017-01-24] MEDS ORDERED: ATOR40TA16 PO (14:46)
== END 2016-12-26 12:35 | disposition home or self-care (01) ==
LOC: NEPA 10:21 → INTOOBSV 13:44 → NEDA 13:44 → NEPGCP 15:35
PROVIDERS: ADMIT Family Medicine; ATTEND Family Medicine
DX: R07.89 Other chest pain (principal); E11.9 Type 2 diabetes mellitus without complications; I10 Essential (primary) hypertension; R79.89 Other specified abnormal findings of blood chemistry; E78.5 Hyperlipidemia, unspecified; G54.6 Phantom limb syndrome with pain; R51 Headache; B20 Human immunodeficiency virus [HIV] disease; E78.00 Pure hypercholesterolemia, unspecified; I25.10 Atherosclerotic heart disease of native coronary artery without angina pectoris; J44.9 Chronic obstructive pulmonary disease, unspecified; F17.200 Nicotine dependence, unspecified, uncomplicated; Z79.4 Long term (current) use of insulin; Z79.82 Long term (current) use of aspirin; Z89.612 Acquired absence of left leg above knee; Z91.041 Radiographic dye allergy status; Z79.51 Long term (current) use of inhaled steroids
CPT/HCPCS: 70450; 71101; 80048; 80053; 80061; 82550; 82948; 84484; 85025; 85610; 85730; 93005; 99285; G0378; J1644; J1815

== ENCOUNTER 2017-04-21 14:52 | Observation (INO) | payer OTHER ==
[~2017-04-21] VITALS: Ht 172.7 cm; Wt 65.0 kg
[2017-04-21] VITALS (9 sets, daily range): BP systolic 174–201; BP diastolic 72–108; PULSE 80–95; RESP 18–20; TEMP 98–98.3; O2SAT 96–100
[~2017-04-21 14:52] MED LIST changes: +ASPI81CH CHEW; +BLOOD GLUCOSE M1 KIT; -CLOT1CRE6 TOPICAL; -LIDO1SOL8 SWISH-SWAL; +NORC5TAB PO; +TRAZ50TA12 PO; +WHEEMIS3; +[UNRECOGNIZED DRUG - CODE]
[2017-04-21] MEDS ORDERED: HEPARIN SODIUM - IV 10,000 UNITS/10 ML VIAL ONE ×2 (15:22→16:08)
[2017-04-21] MEDS ORDERED: ASPIRIN 81 MG CHEW TAB ONE (15:22)
[2017-04-21] MEDS ORDERED: NITROGLYCERIN 0.4 MG SL 25 TABS/BTL SL ONE (15:23)
[2017-04-21] MEDS ORDERED: SODIUM CHLOR 0.9% 1000 ML INJ 1,000 ML IV ONE (15:30)
[2017-04-21] MEDS ORDERED: MORPHINE SULFATE 4 MG/ML INJ IV PUSH ONE (15:45)
[2017-04-21 15:49] LABS: I-STAT POTASSIUM 3.4 MMOL/L (3.5-4.9)
--- NOTE | 2017-04-21 15:49 | RADRPT ---
EXAM DATE/TIME: 04/21/2017 15:17 [facility] COMPARISON: CHEST SINGLE AP, September 19, 2016, 9:12. INDICATIONS : Stemi-Alert MEDICAL HISTORY : None. SURGICAL HISTORY : None. ENCOUNTER: Initial ACUITY: 1 day PAIN SCORE: 8/10 LOCATION: Bilateral chest FINDINGS: A single view of the chest demonstrates the lungs to be symmetrically aerated without evidence of mas s, infiltrate or effusion. The cardiomediastinal contours are unremarkable. Osseous structures are intact. CONCLUSION: No acute cardiopulmonary process. Alistair Tena MD on April 21, 2017 at 15:48 Board Certified Radiologist. This report was verified electronically.
[2017-04-21 15:52] LABS: AUTOMATED NEUTROPHIL # 2.4 TH/MM3 (1.8-7.7); BASOPHIL % 0.5 % (0.0-2.0); EOSINOPHIL # 0.1 TH/MM3 (0-0.4); EOSINOPHIL % 1.9 % (0.0-4.0); HEMATOCRIT 41.9 % (39.0-51.0); HEMO FLAGS DIFF FINAL; LYMPH % 30.6 % (9.0-44.0); LYMPHOCYTE # 1.2 TH/MM3 (1.0-4.8); MEAN CELL VOLUME 79.2 FL (80.0-100.0); MEAN CORPUSCULAR HEMOGLOBIN 26.3 PG (27.0-34.0); MEAN CORPUSCULAR HGB CONC 33.2 % (32.0-36.0); MONO % 7.5 % (0.0-8.0); NEUT % 59.5 % (16.0-70.0); PLATELET COUNT 166 TH/MM3 (150-450); RED BLOOD COUNT 5.29 MIL/MM3 (4.50-5.90); RED CELL DISTRIBUTION WIDTH 14.1 % (11.6-17.2)
[2017-04-21] MEDS ORDERED: MORPHINE SULFATE 8 MG/ML INJ ONE (15:52)
[2017-04-21] MEDS ORDERED: MORPHINE SULFATE 8 MG/ML INJ IV PUSH ONE (16:00)
[2017-04-21] MEDS ORDERED: hydrALAZINE HCL 20 MG/ML VIAL ONE (16:01)
[2017-04-21 16:03] LABS: APTT (PATIENT) 26.8 SEC (24.3-30.1); INTERNATIONAL NORMALIZED RATIO 0.9 RATIO; PROTHROMBIN TIME - PATIENT 10.2 SEC (9.8-11.6)
[2017-04-21] MEDS ORDERED: HEPARIN-NS/PF INJ 500 ML ONE (16:07)
[2017-04-21] MEDS ORDERED: NITROGLYCERIN INJ 5 ML ONE (16:10)
[2017-04-21] MEDS ORDERED: hydrALAZINE HCL 20 MG/ML VIAL IV PUSH ONE (16:15)
[2017-04-21 16:28] LABS: BICARBONATE 28.3 MEQ/L (21.0-32.0); MAGNESIUM 1.8 MG/DL (1.5-2.5); POTASSIUM 3.4 MEQ/L (3.5-5.1)
[2017-04-21] MEDS ORDERED: hydrALAZINE HCL 20 MG/ML VIAL IV PUSH PRN (16:30)
--- NOTE | 2017-04-21 16:59 | PD ---
HPI Chief Complaint: Pain: Acute or Chronic Time Seen by Provider: 15:11 Travel History International Travel<30 days: No Contact w/Intl Traveler<30days: No Traveled to known affect area: No History of Present Illness HPI 61yo M with PMH of DM presents to the ED with c/o left sided chest pain for 3 days. States it is intermittent, nonradiating and sharp. Denies any fever, cough, sob, n/v, abdominal pain, focal weakness or numbness. Pt has blood glucose in the 500s as per EVAC and is noncompliant with his insulin. PFSH Past Medical History Asthma: Yes Autoimmune Disease: Yes (hiv+) Blood Disorders: No Heart Rhythm Problems: No Cancer: No Cardiac Catheterization: No Cardiovascular Problems: Yes High Cholesterol: Yes Chest Pain: Yes Congestive Heart Failure: No COPD: Yes Coronary Artery Disease: Yes Diabetes: Yes Patient Takes Glucophage: No Diminished Hearing: No Endocrine: Yes Gastrointestinal Disorders: Yes (colostomy and reversal) Genitourinary: No Hypertension: Yes Immune Disorder: Yes Musculoskeletal: Yes (LEFT BKA) Neurologic: No Psychiatric: No Reproductive: No Respiratory: Yes (COPD) Immunizations Current: Yes Sleep Apnea: No Thyroid Disease: No Tetanus Vaccination: Unknown Past Surgical History Abdominal Surgery: Yes (abd cyst removed 2008, BOWEL RESECTION, COLOSTOMY AND REVERSAL) Coronary Artery Bypass Graft: No Other Surgery: Yes (L BKA) Family History Family Myocardial Infarction: Yes Social History Alcohol Use: Yes (OCCASIONALLY) Tobacco Use: Yes (OCC) Substance Use: No Allergies-Medications (Allergen,Severity, Reaction): Coded Allergies: Red Dyes - Various (Verified Allergy, Severe, Bradycardia, 04/15/17) Reported Meds & Prescriptions Reported Meds & Active Scripts Active Blood Glucose Monitoring W/Device (Device) 1 Kit Kit 1 Kit .ROUTE DIRECTED Aspirin 81 Mg Chew 81 Mg CHEW DAILY Atorvastatin (Atorvastatin Calcium) 40 Mg Tab 40 Mg PO HS Trazodone (Trazodone HCl) 50 Mg Tab 50 Mg PO HS Truvada (Emtricitabine-Tenofovir Disoproxil Fumarate) 200-300 Mg Tab 1 Tab PO DAILY Advair Diskus Inh (Fluticasone-Salmeterol Inh) 100-50 Mcg/Blist Aer 1 Puff INH BID Rinse mouth after use. Insulin Syringe/0.5ML/31G X 5/16" 1 Mis Mis 1 Box .ROUTE DIRECTED Amlodipine (Amlodipine Besylate) 10 Mg Tab 10 Mg PO DAILY Lisinopril 40 Mg Tab 40 Mg PO DAILY Metoprolol Tartrate 100 Mg Tab 100 Mg PO BID Nicoderm CQ Patch (Nicotine) 7 Mg/24 Hr Patch 7 Mg T-DERMAL DAILY Olanzapine 2.5 Mg Tab 2.5 Mg PO HS Protonix (Pantoprazole Sodium) 40 Mg Tab 40 Mg PO DAILY Lantus Inj (Insulin Glargine) 1,000 Unit/10 Ml Vial 20 Units SQ BID Depend Silhouette Briefs 1 Mis Mis 1 Ea .ROUTE DIRECTED Wheelchair (Device) 1 Mis Mis 1 Ea .ROUTE DIRECTED [place] (Hydrocodone-Acetaminophen) 5-325 mg Tab 1-2 Tab PO Q6H PRN Review of Systems Except as stated in HPI: all other systems reviewed are Neg Physical Exam Narrative GENERAL: 61yo M in mild distres. SKIN: Focused skin assessment warm/dry. HEAD: Atraumatic. Normocephalic. EYES: Pupils equal and round. No scleral icterus. No injection or drainage. ENT: No nasal bleeding or discharge. Mucous membranes pink and moist. NECK: Trachea midline. No JVD. CARDIOVASCULAR: Regular rate and rhythm. No murmur appreciated. RESPIRATORY: No accessory muscle use. Clear to auscultation. Breath sounds equal bilaterally. GASTROINTESTINAL: Abdomen soft, non-tender, nondistended. No rebound tenderness or guarding. MUSCULOSKELETAL: No obvious deformities. No clubbing. No cyanosis. No edema. NEUROLOGICAL: Awake and alert. No obvious cranial nerve deficits. Motor grossly within normal limits. Normal speech. PSYCHIATRIC: Appropriate mood and affect; insight and judgment normal. Data Data Last Documented VS Vital Signs Date Time Temp Pulse Resp B/P Pulse Ox O2 Delivery O2 Flow Rate FiO2 04/21/17 16:13 82 19 174/72 98 Nasal Cannula 2 04/21/17 15:22 98.0 Orders Electrocardiogram (04/21/17 15:17) Basic Metabolic Panel (Bmp) (04/21/17 15:17) Ckmb (Isoenzyme) Profile (04/21/17 15:17) Complete Blood Count With Diff (04/21/17 15:17) Magnesium (Mg) (04/21/17 15:17) Prothrombin Time / Inr (Pt) (04/21/17 15:17) Act Partial Throm Time (Ptt) (04/21/17 15:17) Troponin I (04/21/17 15:17) Chest, Single Ap (04/21/17 15:17) Ecg Monitoring (04/21/17 15:17) Bilateral Bp Monitoring (04/21/17 15:17) Iv Access Insert/Monitor (04/21/17 15:17) Oximetry (04/21/17 15:17) Oxygen Administration (04/21/17 15:17) Sodium Chlor 0.9% 1000 Ml Inj (Ns 1000 M (04/21/17 15:30) Urinalysis - C+S If Indicated (04/21/17 15:17) Heparin Inj (Heparin Inj) (04/21/17 15:22) Aspirin Chew (Aspirin Chew) (04/21/17 15:22) Nitroglycerin Sl (Nitrostat Sl) (04/21/17 15:23) Morphine Inj (Morphine Inj) (04/21/17 15:45) I-Stat Creatinine (04/21/17 15:17) I-Stat Profile (04/21/17 15:17) Morphine Inj (Morphine Inj) (04/21/17 16:00) Morphine Inj (Morphine Inj) (04/21/17 15:52) Hydralazine Inj (Apresoline Inj) (04/21/17 16:01) Heparin-Ns/Pf Inj (Heparin-Ns/Pf Inj) (04/21/17 16:07) Heparin Inj (Heparin Inj) (04/21/17 16:08) Hydralazine Inj (Apresoline Inj) (04/21/17 16:15) Nitroglycerin Inj (Nitroglycerin Inj) (04/21/17 16:10) Hydralazine Inj (Apresoline Inj) (04/21/17 16:30) Drug Screen,Ur W/Confirmation (04/21/17 17:01) Diet 1800 Ada Cons Carb (04/21/17 Dinner) Troponin I (04/21/17 20:00) Troponin I (04/22/17 02:00) Blood Glucose Goal (Criteria) (04/21/17 17:58) Hypoglycemia 70 Mg/Dl Or < (04/21/17 17:58) Notify Dr: Other (04/21/17 17:58) Dextrose 50% In Ana (Vial) Inj (D50w (Vi (04/21/17 18:00) Glucagon Inj (Glucagon Inj) (04/21/17 18:00) Insulin Aspart Supplemtl Scale (Novolog (04/21/17 21:00) Admit Order (Ed Use Only) (04/21/17 18:00) Echo 2d Comp With Doppler (04/22/17 ) Labs Laboratory Tests Test 04/21/17 04/21/17 14:20 17:45 White Blood Count 4.0 TH/MM3 Red Blood Count 5.29 MIL/MM3 Hemoglobin 13.9 GM/DL Bedside Hemoglobin 14.6 G/DL Hematocrit 41.9 % Bedside Hematocrit 43.0 % Mean Corpuscular Volume 79.2 FL Mean Corpuscular Hemoglobin 26.3 PG Mean Corpuscular Hemoglobin 33.2 % Concent Red Cell Distribution Width 14.1 % Platelet Count 166 TH/MM3 Mean Platelet Volume 9.2 FL Neutrophils (%) (Auto) 59.5 % Lymphocytes (%) (Auto) 30.6 % Monocytes (%) (Auto) 7.5 % Eosinophils (%) (Auto) 1.9 % Basophils (%) (Auto) 0.5 % Neutrophils # (Auto) 2.4 TH/MM3 Lymphocytes # (Auto) 1.2 TH/MM3 Monocytes # (Auto) 0.3 TH/MM3 Eosinophils # (Auto) 0.1 TH/MM3 Basophils # (Auto) 0.0 TH/MM3 CBC Comment DIFF FINAL Differential Comment Prothrombin Time 10.2 SEC Prothromb Time International 0.9 RATIO Ratio Activated Partial 26.8 SEC Thromboplast Time Bedside Sodium 137 MMOL/L Sodium Level 135 MEQ/L Bedside Potassium 3.4 MMOL/L Potassium Level 3.4 MEQ/L Bedside Chloride 99 MMOL/L Chloride Level 101 MEQ/L Carbon Dioxide Level 28.3 MEQ/L Anion Gap 6 MEQ/L Bedside Blood Urea Nitrogen 7 MG/DL Blood Urea Nitrogen 8 MG/DL Creatinine 1.29 MG/DL Bedside Creatinine 0.9 MG/DL Estimat Glomerular Filtration 69 ML/MIN Rate Bedside Glucose 490 MG/DL Random Glucose 434 MG/DL Calcium Level 8.4 MG/DL Magnesium Level 1.8 MG/DL Total Creatine Kinase 55 U/L Troponin I 0.03 NG/ML Urine Color LIGHT-YELLOW Urine Turbidity CLEAR Urine pH 7.0 Urine Specific [place] 1.023 Urine Protein TRACE mg/dL Urine Glucose (UA) 1000 mg/dL Urine Ketones NEG mg/dL Urine Occult Blood NEG Urine Nitrite NEG Urine Bilirubin NEG Urine Urobilinogen LESS THAN 2.0 MG/DL Urine Leukocyte Esterase SMALL Urine RBC LESS THAN 1 /hpf Urine WBC 2 /hpf Microscopic Urinalysis Comment CULT NOT INDICATED Urine Opiates Screen NEG Urine Barbiturates Screen NEG Urine Amphetamines Screen NEG Urine Benzodiazepines Screen NEG Urine Cocaine Screen NEG Urine Cannabinoids Screen NEG MDM Medical Decision Making Medical Screen Exam Complete: Yes Emergency Medical Condition: Yes Interpretation(s) EKG: ST elevation in V1, V2. ST depression/TWI I, II, III, V5, V6. Differential Diagnosis ACS vs. DKA vs. uncontrolled DM vs. Pneumonia vs. musculoskeletal pain Narrative Course 61yo M with left sided chest pain. EKG showed ST elevation in V1, V2 with mild ST depressions in the other leads. I did initially called STEMI alert even though pt had similar EKG in the past, since pt is having active chest pain and states this feels worst. After discussing with Dr. Best and evaluation by Dr. Best, STEMI was canceled. Pt given morphine 2mg IV. Labs reviewed, no leukocytosis. Troponin 0.03. Glucose 490. No increased anion gap. CXR negative. Discussed with Dr. Harding and accepted to his service. Diagnosis Primary Impression: Chest pain Qualified Code: R07.9 - Chest pain, unspecified type Additional Impression: Uncontrolled diabetes mellitus Qualified Code: E11.8 - Uncontrolled type 2 diabetes mellitus with complication, with long-term current use of insulin Admitting Information Admitting Physician Requests: Observation Scripts Insulin Aspart Inj (Novolog Inj)100 Unit/Ml Inj1 Unit SQ ACHS SLIDING SCALE 30 Days Ref 1 accu-check AC/HS with Novolog sliding scale coverage; 150-200 two units 201-250 four units 251-300 six units 301-350 eight units 351-400 ten units inform PCP if < 70 or > 400. Prov:Lucia Antoine MD 04/22/17 Elyssa Moya DO Apr 21, 2017 16:59
--- NOTE | 2017-04-21 17:12 | MB ---
cc: GALLO DEL CID DO DATE OF CONSULTATION 04/21/2017 REASON FOR CONSULTATION Chest pain. HISTORY OF PRESENT ILLNESS Sachin Dumont is a 61-year-old male who presents to [facility] on April 21, 2017 due to chest pain. EKG was obtained and there was concern for ST elevations so a STEMI alert was called. In speaking a lot to him he states that he has left-sided chest pain which is sharp and stabbing in nature which started this morning when waking up. He denies radiation of the chest pain to his arm or jaw. He previously has had chest pain similar to this on multiple admissions. This is similar chest pain that brought him in in September 2016 where he underwent a pharmacologic nuclear stress test showing no ischemia. He states that recently he has had a cold with a cough and has been on multiple medications including NyQuil, DayQuil and Sudafed. Notably on arrival his blood pressure was 200/100. PAST MEDICAL HISTORY 1. HIV. 2. Hypertension. 3. Hyperlipidemia. 4. Diabetes mellitus. 5. Asthma. 6. COPD. 7. Tobacco abuse. 8. Peripheral arterial disease. PAST SURGICAL HISTORY 1. Abdominal surgery for colon resection due to cyst removal. 2. Left [id number] amputation. ALLERGIES RED DYE. MEDICATIONS 1. Lisinopril 40 mg daily. 2. Trazodone 50 mg every night. 3. Olanzapine 2.5 milligrams every night. 4. Truvada 200/300 daily. 5. Nicotine patch. 6. Metoprolol tartrate 100 mg b.i.d. 7. Advair 100/50 mg b.i.d. 8. Norvasc 10 mg daily. 9. Lipitor 40 mg every night. 10. Lantus 20 units b.i.d. 11. Aspirin 81 mg daily 12. [place] 5/325 mg 1-2 tablets every 6 hours as needed for pain. 13. Protonix 40 mg daily. 14. Per the patient he has not had any of his medications for the past 3 months but just recently got them back supposedly. FAMILY HISTORY Denies premature coronary artery disease or sudden cardiac within the family. SOCIAL HISTORY The patient has smoked for 37 years at varying amounts based on his finances. He drinks two to three beers a day currently. He denies illicit drug abuse but has a history of crack cocaine and marijuana. REVIEW OF SYSTEMS 14-systems were reviewed including osteopathic, pertinent positives and negatives above otherwise negative. PHYSICAL EXAMINATION VITAL SIGNS: Temperature 98.0, heart rate 82, blood pressure 174/72, respirations 19, pulse ox 98% on 2 liters. GENERAL: In general the patient appears well in no acute distress, alert awake and oriented x3. HEENT: Extraocular muscles intact. Mucous membranes moist. NECK: Supple. No JVD at 45 degrees. No carotid bruits heard bilaterally. Carotid upstroke is brisk in nature. CARDIOVASCULAR: Heart is regular rate and rhythm. Positive first and second heart sounds with no noted murmurs, gallops or rubs. PMI is difficult to ascertain but does not appear displaced. LUNGS: The lungs have decreased breath sounds at the bilateral bases but no overt wheezes, rales or rhonchi. ABDOMEN: Soft and nontender, nondistended. No organomegaly noted. Scar across the umbilical region from previous surgery. EXTREMITIES: Right lower extremity has no clubbing, cyanosis or edema. Left lower extremity [id number] amputation. NEUROLOGIC: No focal deficits. SKIN: Warm, dry and intact. OSTEOPATHIC: No kyphoscoliosis, lordosis or paraspinal tender points. LABORATORY FINDINGS Hemoglobin 13.9, hematocrit 41.9, platelets 166. Potassium 3.4, glucose 490 with the rest of the labs pending at this time. Electrocardiogram (April 21, 2017 at 1518) sinus rhythm. A possible old septal infarct, ST-T wave changes throughout the inferior lateral leads. No significant change from December 25, 2016. IMPRESSION 1. Atypical chest pain. 2. EKG with no significant change from previous. 3. History of HIV. 4. History of hypertension with accelerated hypertension, possibly due to not having his medications versus recent cold medications including Sudafed. 5. Hyperlipidemia. 6. Type 2 diabetes mellitus. 7. Asthma. 8. COPD. 9. Tobacco abuse. 10. Peripheral artery disease with left [id number] amputation. 11. History of cocaine and marijuana abuse. RECOMMENDATIONS 1. Mr. Dumont presented with chest pain which appears atypical for coronary insufficiency. His EKG is no different than before and I would not consider this a STEMI. 2. He has been given 2 mg of morphine and is now sleeping in his room and chest pain is gone. 3. We will plan to admit him and check for three sets of troponins. 4. Troponins may be elevated due to his current accelerated hypertension which may be due to him being without his medicines versus recently being on cold medicine including Sudafed. I explained the importance of not using Sudafed or any others with a decongestant as he has a history of hypertension. 5. I spoke to him for greater than 3 minutes about tobacco cessation for which he currently is trying to use a nicotine patch to stop. 6. We should also check a UDS as he does have a history of crack cocaine abuse. 7. Will plan on checking an echocardiogram to look at his overall left ventricular function, cardiac structure and possible valvopathies. Thank you for allowing me to see Sachin Dumont. If there are any questions please do not hesitate to call. Gallo Del Cid DO VGP/KK /4:22 PM /4:43 PM
[2017-04-21] MEDS ORDERED: GLUCAGON 1 MG/ML VIAL OTHER PRN (18:00)
[2017-04-21] MEDS ORDERED: DEXTROSE 50% IN WATER 50 ML VIAL(D50) IV PRN (18:00)
--- NOTE | 2017-04-21 18:29 | HHI.HP ---
[facility] No Primary Care Physician Admission Diagnosis Chest pain Diagnoses: (1) Uncontrolled diabetes mellitus Diagnosis: Principal (2) Chest pain Diagnosis: Principal Chief Complaint: chest pain Travel History International Travel<30 Days: No Contact w/Intl Traveler <30 Da: No Traveled to Known Affected Are: No History of Present Illness patient is a 61 y/o male with history of diabetes mellitus, hypertension, dyslipidemia , non-compliant with medications, presented to ER with chest pain. he says that he hasn't taken his medications for the past few weeks due to his insurance issues. he started to have chest pain three days ago. pain is localized to the left upper chest with no radiation. pain is intermittent and mild to moderate in intensity. pain has been associated with on and off nausea and sob. he says that he just received his insulin but didn't get the chance to use it. Review of Systems Respiratory: COMPLAINS OF: Shortness of breath Cardiovascular: COMPLAINS OF: Chest pain Gastrointestinal: COMPLAINS OF: Nausea Past Family Social History Past Medical History diabetes mellitus hypertension dyslipidemia COPD HIV positive Past Surgical History colon resection left AKA Reported Medications Blood Glucose Monitoring W/Device (Device) 1 Kit Kit 1 Kit .ROUTE DIRECTED Aspirin 81 Mg Chew 81 Mg CHEW DAILY Atorvastatin (Atorvastatin Calcium) 40 Mg Tab 40 Mg PO HS Trazodone (Trazodone HCl) 50 Mg Tab 50 Mg PO HS Truvada (Emtricitabine-Tenofovir Disoproxil Fumarate) 200-300 Mg Tab 1 Tab PO DAILY Advair Diskus Inh (Fluticasone-Salmeterol Inh) 100-50 Mcg/Blist Aer 1 Puff INH BID Rinse mouth after use. Insulin Syringe/0.5ML/31G X 5/16" 1 Mis Mis 1 Box .ROUTE DIRECTED Amlodipine (Amlodipine Besylate) 10 Mg Tab 10 Mg PO DAILY Lisinopril 40 Mg Tab 40 Mg PO DAILY Metoprolol Tartrate 100 Mg Tab 100 Mg PO BID Nicoderm CQ Patch (Nicotine) 7 Mg/24 Hr Patch 7 Mg T-DERMAL DAILY Olanzapine 2.5 Mg Tab 2.5 Mg PO HS Protonix (Pantoprazole Sodium) 40 Mg Tab 40 Mg PO DAILY Lantus Inj (Insulin Glargine) 1,000 Unit/10 Ml Vial 20 Units SQ BID Depend Silhouette Briefs 1 Mis Mis 1 Ea .ROUTE DIRECTED Wheelchair (Device) 1 Mis Mis 1 Ea .ROUTE DIRECTED [place] (Hydrocodone-Acetaminophen) 5-325 mg Tab 1-2 Tab PO Q6H PRN Allergies: Coded Allergies: Red Dyes - Various (Verified Allergy, Severe, Bradycardia, 04/15/17) Active Ordered Medications Current Medications Sodium Chloride (NS 1000 ml Inj) 1,000 ml @ 999 mls/hr BOLUS ONCE IV Last administered on 04/21/17t 16:12; Start 04/21/17 at 15:30; Stop 04/21/17 at 16:30; Status DC Heparin Sodium (Porcine) (Heparin Inj) 10,000 units STK-MED ONCE .ROUTE ; Start 04/21/17 at 15:22; Stop 04/21/17 at 15:23; Status DC Aspirin (Aspirin Chew) 81 mg STK-MED ONCE .ROUTE ; Start 04/21/17 at 15:22; Stop 04/21/17 at 15:23; Status DC Nitroglycerin (Nitrostat Sl) 0.4 mg STK-MED ONCE SL ; Start 04/21/17 at 15:23; Stop 04/21/17 at 15:24; Status DC Morphine Sulfate (Morphine Inj) 4 mg ONCE ONCE IV PUSH ; Start 04/21/17 at 15:45 ; Stop 04/21/17 at 15:53; Status DC Morphine Sulfate (Morphine Inj) 8 mg STK-MED ONCE .ROUTE ; Start 04/21/17 at 15: 52; Stop 04/21/17 at 15:53; Status DC Morphine Sulfate (Morphine Inj) 2 mg ONCE ONCE IV PUSH Last administered on t 15:57; Start 04/21/17 at 16:00; Stop 04/21/17 at 16:01; Status DC Hydralazine HCl 20 mg 20 mg STK-MED ONCE .ROUTE ; Start 04/21/17 at 16:01; Stop 04/21/17 at 16:02; Status DC Heparin Sodium/ Sodium Chloride (Heparin-NS/Pf Inj) 500 ml @ As Directed STK- MED ONCE .ROUTE ; Start 04/21/17 at 16:07; Stop 04/21/17 at 16:08; Status DC Heparin Sodium (Porcine) (Heparin Inj) 10,000 units STK-MED ONCE .ROUTE ; Start 04/21/17 at 16:08; Stop 04/21/17 at 16:09; Status DC Hydralazine HCl 10 mg 10 mg ONCE ONCE IV PUSH Last administered on 04/21/17t 16 :12; Start 04/21/17 at 16:15; Stop 04/21/17 at 16:16; Status DC Nitroglycerin (Nitroglycerin Inj) 5 ml @ As Directed STK-MED ONCE .ROUTE ; Start 04/21/17 at 16:10; Stop 04/21/17 at 16:11; Status DC Hydralazine HCl (Apresoline Inj) 10 mg Q4H PRN IV PUSH SBP > 170/90; Start 04/21 at 16:30 Dextrose (D50w (Vial) Inj) 50 ml UNSCH PRN IV HYPOGLYCEMIA-SEE COMMENTS; Start 04/21/17 at 18:00 Glucagon (Glucagon Inj) 1 mg UNSCH PRN OTHER HYPOGLYCEMIA-SEE COMMENTS; Start 04/21/17 at 18:00 Insulin Aspart (NovoLOG SUPPLEMENTAL SCALE) 1 ACHS SLIDING SCALE SQ ; Start 04/21/17 at 21:00 Family History heart disease in brother. Social History smokes a couple of cigarettes a day- drinks occasionally. denies illicit drug abuse. Physical Exam Vital Signs Vital Signs Date Time Temp Pulse Resp B/P Pulse Ox O2 Delivery O2 Flow Rate FiO2 04/21/17 16:13 82 19 174/72 98 Nasal Cannula 2 04/21/17 15:25 99 Nasal Cannula 2.00 04/21/17 15:22 98.0 81 18 197/96 98 Room Air 04/21/17 15:22 98.0 83 19 197/96 98 Nasal Cannula 2 04/21/17 15:22 98.0 81 19 197/96 100 04/21/17 15:22 98 Room Air 04/21/17 15:18 98.0 80 20 193/103 96 Physical Exam GENERAL: This is a well-nourished, well-developed patient, in no apparent distress. SKIN: No rashes, ecchymoses or lesions. Cool and dry. HEAD: Atraumatic. Normocephalic. No temporal or scalp tenderness. EYES: Pupils equal round and reactive. Extraocular motions intact. No scleral icterus. No injection or drainage. ENT: Nose without bleeding, purulent drainage or septal hematoma. Throat without erythema, tonsillar hypertrophy or exudate. Uvula midline. Airway patent. NECK: Trachea midline. No JVD or lymphadenopathy. Supple, nontender, no meningeal signs. CARDIOVASCULAR: Regular rate and rhythm without murmurs, gallops, or rubs. RESPIRATORY: Clear to auscultation. Breath sounds equal bilaterally. No wheezes , rales, or rhonchi. GASTROINTESTINAL: Abdomen soft, non-tender, nondistended. No hepato-splenomegaly , or palpable masses. No guarding. MUSCULOSKELETAL: s/p left AKA NEUROLOGICAL: Awake and alert. Cranial nerves II through XII intact. Motor and sensory grossly within normal limits. Five out of 5 muscle strength in all muscle groups. Normal speech. Laboratory Laboratory Tests Test 04/21/17 14:20 White Blood Count 4.0 Red Blood Count 5.29 Hemoglobin 13.9 Bedside Hemoglobin 14.6 Hematocrit 41.9 Bedside Hematocrit 43.0 Mean Corpuscular Volume 79.2 Mean Corpuscular Hemoglobin 26.3 Mean Corpuscular Hemoglobin 33.2 Concent Red Cell Distribution Width 14.1 Platelet Count 166 Mean Platelet Volume 9.2 Neutrophils (%) (Auto) 59.5 Lymphocytes (%) (Auto) 30.6 Monocytes (%) (Auto) 7.5 Eosinophils (%) (Auto) 1.9 Basophils (%) (Auto) 0.5 Neutrophils # (Auto) 2.4 Lymphocytes # (Auto) 1.2 Monocytes # (Auto) 0.3 Eosinophils # (Auto) 0.1 Basophils # (Auto) 0.0 CBC Comment DIFF FINAL Differential Comment Prothrombin Time 10.2 Prothromb Time International 0.9 Ratio Activated Partial 26.8 Thromboplast Time Bedside Sodium 137 Sodium Level 135 Bedside Potassium 3.4 Potassium Level 3.4 Bedside Chloride 99 Chloride Level 101 Carbon Dioxide Level 28.3 Anion Gap 6 Bedside Blood Urea Nitrogen 7 Blood Urea Nitrogen 8 Creatinine 1.29 Bedside Creatinine 0.9 Estimat Glomerular Filtration 69 Rate Bedside Glucose 490 Random Glucose 434 Calcium Level 8.4 Magnesium Level 1.8 Total Creatine Kinase 55 Troponin I 0.03 Result Diagram: 04/21/17 1420 04/21/17 1420 Imaging Last Impressions Chest X-Ray 04/21/17 1517 Signed Impressions: Service Date/Time: Friday, April 21, 2017 15:17 - CONCLUSION: No acute cardiopulmonary process. Alistair Tena MD EKG; sinus rhythm Assessment and Plan Assessment and Plan A/P - chest pain cardiology consult appreciated; resume aspirin- will the trend the cardiac enzymes and check echo -diabetes mellitus- uncontrolled due to noncompliance resume levemir- accu-check with SSI -hypertension; uncontrolled due to noncompliance; resume home meds- vasotec prn continue to monitor and adjust the regimen as needed -COPD with no exacerbation; resume advair- neb treatment as needed -HIV positive; resume antiretroviral therapy- f/u as outpatient -DVT prophylaxis with SCD's Discussed Condition With ER physician and the patient. Problem Qualifiers (1) Uncontrolled diabetes mellitus: (2) Chest pain: Qualified Code: R07.9 - Chest pain, unspecified type Lucia Antoine MD Apr 21, 2017 18:29
[2017-04-21] MEDS ORDERED: ACETAMINOPHEN 325 MG TAB PO PRN (18:30)
[2017-04-21] MEDS ORDERED: ENALAPRILAT 1.25 MG/ML VIAL IV PUSH PRN (18:30)
[2017-04-21] MEDS ORDERED: POTASSIUM CHLORIDE 10 MEQ CONTROLLED RELEASE TAB PO ONE (18:45)
[2017-04-21] MEDS ORDERED: RESP: ALBUTEROL 1.25 MG/3 ML NEB (PRN) NEB (18:45)
[2017-04-21 18:49] LABS: BLOOD, URINE NEG (NEG); COMMENT (UR) CULT NOT INDICATED; CULTURE IF INDICATED CULT NOT INDICATED; GLUCOSE,URINE 1000 mg/dL (NEG); KETONE, URINE NEG (NEG); NITRITE,URINE NEG (NEG); URINE COLOR LIGHT-YELLOW (YELLW/STRAW)
[2017-04-21] MEDS ORDERED: OLANZapine 2.5 MG TAB PO SCH (21:00)
[2017-04-21] MEDS ORDERED: ATORVASTATIN 40 MG TAB PO SCH (21:00)
[2017-04-21] MEDS ORDERED: traZODone HCL 50 MG TAB PO SCH (21:00)
[2017-04-21] MEDS: METOPROLOL TARTRATE 100 MG TAB PO SCH (22:12)
[2017-04-21] MEDS: INSULIN DETEMIR 100 UNITS/ML VIAL SQ SCH (22:13)
[2017-04-21] MEDS: ACETAMINOPHEN/HYDROcodone 325 MG/5 MG TAB PO PRN (22:25)
[2017-04-21] MEDS: INSULIN ASPART SUPPLEMENTAL SCALE SQ SCH (22:26)
[2017-04-21 22:38] LABS: AMPHETAMINE, URINE NEG (NEG); BARBITURATES, URINE NEG (NEG); COCAINE, URINE NEG (NEG)
[2017-04-21] MEDS: BUDESONIDE-FORMOTEROL 80/4.5 MCG INHALER INH SCH (23:02)
[2017-04-22] VITALS (12 sets, daily range): BP systolic 126–153; BP diastolic 63–73; PULSE 51–72; RESP 15–16; TEMP 97.9–98.6; O2SAT 96–99
[2017-04-22] MEDS: INSULIN ASPART SUPPLEMENTAL SCALE SQ SCH ×3 (06:46→18:09)
[2017-04-22] MEDS: METOPROLOL TARTRATE 100 MG TAB PO SCH (07:44)
[2017-04-22] MEDS: BUDESONIDE-FORMOTEROL 80/4.5 MCG INHALER INH SCH (07:45)
[2017-04-22] MEDS: INSULIN DETEMIR 100 UNITS/ML VIAL SQ SCH (08:20)
[2017-04-22] MEDS ORDERED: EMTRICITABINE/TENOFOVIR 200 MG/300 MG TAB PO SCH (09:00)
[2017-04-22] MEDS ORDERED: ASPIRIN 81 MG CHEW TAB CHEW SCH (09:00)
[2017-04-22] MEDS ORDERED: LISINOPRIL 20 MG TAB PO SCH (09:00)
[2017-04-22] MEDS ORDERED: PANTOPRAZOLE SOD 40 MG DELAYED RELEASE TAB PO SCH (09:00)
[2017-04-22] MEDS: ACETAMINOPHEN/HYDROcodone 325 MG/5 MG TAB PO PRN (09:02)
--- NOTE | 2017-04-22 11:04 | HHI.PR ---
Subjective Remarks resting comfortably with no distress. has mild chest pain. no other complaints. Objective Vitals Vital Signs Date Time Temp Pulse Resp B/P Pulse Ox O2 Delivery O2 Flow Rate FiO2 04/22/17 08:00 60 04/22/17 07:31 98.6 61 16 141/67 97 04/22/17 07:20 96 21 04/22/17 04:39 98.3 69 16 153/72 99 04/22/17 04:04 65 04/22/17 01:03 98.2 67 15 134/63 98 04/22/17 00:07 72 04/21/17 23:26 20 04/21/17 22:53 85 04/21/17 21:50 98.3 19 183/96 99 04/21/17 20:24 85 18 176/81 99 Room Air 04/21/17 19:31 98 Nasal Cannula 2.00 04/21/17 18:39 95 20 201/108 98 04/21/17 16:13 82 19 174/72 98 Nasal Cannula 2 04/21/17 15:25 99 Nasal Cannula 2.00 04/21/17 15:22 98.0 81 18 197/96 98 Room Air 04/21/17 15:22 98.0 83 19 197/96 98 Nasal Cannula 2 04/21/17 15:22 98.0 81 19 197/96 100 04/21/17 15:22 98 Room Air 04/21/17 15:18 98.0 80 20 193/103 96 I/O 04/21/17 04/21/17 04/21/17 04/22/17 04/22/17 04/22/17 07:00 15:00 23:00 07:00 15:00 23:00 Intake Total 150 ml Output Total 250 ml Balance -100 ml Intake Oral 150 ml Output Urine Total 250 ml Result Diagram: 04/21/17 1420 04/21/17 1420 Imaging Last Impressions Chest X-Ray 04/21/17 1517 Signed Impressions: Service Date/Time: Friday, April 21, 2017 15:17 - CONCLUSION: No acute cardiopulmonary process. Alistair Tena MD Objective Remarks GENERAL: This is a well-nourished, well-developed patient, in no apparent distress. CARDIOVASCULAR: Regular rate and regular rhythm without murmurs, gallops, or rubs. RESPIRATORY: Clear to auscultation. Breath sounds equal bilaterally. No wheezes , rales, or rhonchi. GASTROINTESTINAL: Abdomen soft, non-tender, nondistended. Normal, active bowel sounds MUSCULOSKELETAL: Extremities without clubbing, cyanosis, or edema. NEURO: Alert & Oriented x4 to person, place, time, situation. Moves all ext x4 Procedures none Medications and IVs Current Medications Sodium Chloride (NS 1000 ml Inj) 1,000 ml @ 999 mls/hr BOLUS ONCE IV Last administered on 04/21/17 16:12; Start 04/21/17 at 15:30; Stop 04/21/17 at 16:30; Status DC Heparin Sodium (Porcine) (Heparin Inj) 10,000 units STK-MED ONCE .ROUTE ; Start 04/21/17 at 15:22; Stop 04/21/17 at 15:23; Status DC Aspirin (Aspirin Chew) 81 mg STK-MED ONCE .ROUTE ; Start 04/21/17 at 15:22; Stop 04/21/17 at 15:23; Status DC Nitroglycerin (Nitrostat Sl) 0.4 mg STK-MED ONCE SL ; Start 04/21/17 at 15:23; Stop 04/21/17 at 15:24; Status DC Morphine Sulfate (Morphine Inj) 4 mg ONCE ONCE IV PUSH ; Start 04/21/17 at 15:45 ; Stop 04/21/17 at 15:53; Status DC Morphine Sulfate (Morphine Inj) 8 mg STK-MED ONCE .ROUTE ; Start 04/21/17 at 15: 52; Stop 04/21/17 at 15:53; Status DC Morphine Sulfate (Morphine Inj) 2 mg ONCE ONCE IV PUSH Last administered on 15:57; Start 04/21/17 at 16:00; Stop 04/21/17 at 16:01; Status DC Hydralazine HCl 20 mg 20 mg STK-MED ONCE .ROUTE ; Start 04/21/17 at 16:01; Stop 04/21/17 at 16:02; Status DC Heparin Sodium/ Sodium Chloride (Heparin-NS/Pf Inj) 500 ml @ As Directed STK- MED ONCE .ROUTE ; Start 04/21/17 at 16:07; Stop 04/21/17 at 16:08; Status DC Heparin Sodium (Porcine) (Heparin Inj) 10,000 units STK-MED ONCE .ROUTE ; Start 04/21/17 at 16:08; Stop 04/21/17 at 16:09; Status DC Hydralazine HCl 10 mg 10 mg ONCE ONCE IV PUSH Last administered on 04/21/17 16 :12; Start 04/21/17 at 16:15; Stop 04/21/17 at 16:16; Status DC Nitroglycerin (Nitroglycerin Inj) 5 ml @ As Directed STK-MED ONCE .ROUTE ; Start 04/21/17 at 16:10; Stop 04/21/17 at 16:11; Status DC Hydralazine HCl (Apresoline Inj) 10 mg Q4H PRN IV PUSH SBP > 170/90 Last administered on 04/21/17 18:44; Start 04/21/17 at 16:30 Dextrose (D50w (Vial) Inj) 50 ml UNSCH PRN IV HYPOGLYCEMIA-SEE COMMENTS; Start 04/21/17 at 18:00 Glucagon (Glucagon Inj) 1 mg UNSCH PRN OTHER HYPOGLYCEMIA-SEE COMMENTS; Start 04/21/17 at 18:00 Insulin Aspart (NovoLOG SUPPLEMENTAL SCALE) 1 ACHS SLIDING SCALE SQ Last administered on 04/22/17 06:46; Start 04/21/17 at 21:00 Insulin Detemir (Levemir Inj) 10 units BID SQ Last administered on 04/22/17 08 :20; Start 04/21/17 at 21:00 Enalaprilat (Vasotec Inj) 1.25 mg Q8H PRN IV PUSH SBP> OR = 180, DBP> OR = 100 ; Start 04/21/17 at 18:30 Amlodipine Besylate (Norvasc) 10 mg DAILY PO Last administered on 04/22/17 07: 44; Start 04/22/17 at 09:00 Aspirin (Aspirin Chew) 81 mg DAILY CHEW ; Start 04/22/17 at 09:00 Atorvastatin Calcium (Lipitor) 40 mg HS PO Last administered on 04/21/17 22:12 ; Start 04/21/17 at 21:00 Emtricitabine/ Tenofovir (Truvada 200-300 Mg) 1 tab DAILY PO Last administered on 04/22/17 08:15; Start 04/22/17 at 09:00 Metoprolol Tartrate (Lopressor) 100 mg BID PO Last administered on 04/22/17 07 :44; Start 04/21/17 at 21:00 Olanzapine (ZyPREXA) 2.5 mg HS PO Last administered on 04/21/17 23:01; Start at 21:00 Pantoprazole Sodium (Protonix) 40 mg DAILY PO Last administered on 04/22/17 07 :44; Start 04/22/17 at 09:00 Trazodone HCl (Desyrel) 50 mg HS PO Last administered on 04/21/17 22:11; Start 04/21/17 at 21:00 Budesonide/ Formoterol Fumarate (Symbicort 80-4.5 Mcg Inh) 2 puff BID INH Last administered on 04/22/17 07:45; Start 04/21/17 at 21:00 Lisinopril (Prinivil) 40 mg DAILY PO Last administered on 04/22/17 07:43; Start 04/22/17 at 09:00 Acetaminophen/ Hydrocodone Bitart ([place] 5-325 Mg) 1 tab Q6H PRN PO PAIN >5 Last administered on 04/22/17 09:02; Start 04/21/17 at 18:30 Acetaminophen (Tylenol) 650 mg Q4H PRN PO FEVER/PAIN <5; Start 04/21/17 at 18:30 Albuterol Sulfate (Albuterol Neb) 1.25 mg Q4HR NEB PRN NEB SHORTNESS OF BREATH ; Start 04/21/17 at 18:45 Potassium Chloride (KCl) 10 meq ONCE ONCE PO Last administered on 04/21/17 22: 11; Start 04/21/17 at 18:45; Stop 04/21/17 at 18:46; Status DC A/P Assessment and Plan - chest pain cardiology consult appreciated; resumed aspirin- cardiac enzymes negative- echo pending. -diabetes mellitus- uncontrolled due to noncompliance- overall improved. resumed levemir- accu-check with SSI -hypertension; uncontrolled due to noncompliance;now improved after resuming home meds- vasotec prn continue to monitor and adjust the regimen as needed -COPD with no exacerbation; resumed advair- neb treatment as needed -HIV positive; resume antiretroviral therapy- f/u as outpatient -DVT prophylaxis with SCD's Discharge Planning when cleared by cardiology. Lucia Antoine MD Apr 22, 2017 11:04
[2017-04-22] MEDS ORDERED: NOVOLOGSS SQ (11:07)
--- NOTE | 2017-04-22 13:34 | EKG ---
Date Performed: 04/21/2017 Time Performed: 15:18:31 PTAGE: 61 years EKG: Sinus rhythm SEPTAL MYOCARDIAL INFARCTION ANTERIOR ST ELEVATION NOTED ON PRIOR TRACING AND IS LARGELY UNCHANGED. CONTINUED CLINICAL CORRELATION IS RECOMMENDED PREVIOUS TRACING : 12/26/2016 06.05 DOCTOR: José Miguel Urias Interpretating Date/Time 04/22/2017 13:30:37
--- NOTE | 2017-04-22 13:39 | PD.CARD.PN ---
Subjective Subjective Remarks No chest pain, no shortness of breath Resting comfortably in bed Objective Medications Current Medications Medications (Trade) Dose Ordered Sig/Daniella Route Start Time Stop Time Status Last Admin (Apresoline Inj) 10 mg Q4H PRN IV PUSH 04/21/17 16:30 04/21/17 18:44 (D50w (Vial) Inj) 50 ml UNSCH PRN IV 04/21/17 18:00 (Glucagon Inj) 1 mg UNSCH PRN OTHER 04/21/17 18:00 (Levemir Inj) 10 units BID SQ 04/21/17 21:00 04/22/17 08:20 (Vasotec Inj) 1.25 mg Q8H PRN IV PUSH 04/21/17 18:30 (Norvasc) 10 mg DAILY PO 04/22/17 09:00 04/22/17 07:44 (Aspirin Chew) 81 mg DAILY CHEW 04/22/17 09:00 (Lipitor) 40 mg HS PO 04/21/17 21:00 04/21/17 22:12 (Truvada 200-300 Mg) 1 tab DAILY PO 04/22/17 09:00 04/22/17 08:15 (Lopressor) 100 mg BID PO 04/21/17 21:00 04/22/17 07:44 (ZyPREXA) 2.5 mg HS PO 04/21/17 21:00 04/21/17 23:01 (Protonix) 40 mg DAILY PO 04/22/17 09:00 04/22/17 07:44 (Desyrel) 50 mg HS PO 04/21/17 21:00 04/21/17 22:11 (Symbicort 80-4.5 Mcg Inh) 2 puff BID INH 04/21/17 21:00 04/22/17 07:45 (Prinivil) 40 mg DAILY PO 04/22/17 09:00 04/22/17 07:43 ([place] 5-325 Mg) 1 tab Q6H PRN PO 04/21/17 18:30 04/22/17 09:02 (Tylenol) 650 mg Q4H PRN PO 04/21/17 18:30 Vital Signs / I&O Vital Signs Date Time Temp Pulse Resp B/P Pulse Ox O2 Delivery O2 Flow Rate FiO2 04/22/17 11:18 97.9 54 15 126/73 98 04/22/17 08:00 60 04/22/17 07:31 98.6 61 16 141/67 97 04/22/17 07:20 96 21 04/22/17 04:39 98.3 69 16 153/72 99 04/22/17 04:04 65 04/22/17 01:03 98.2 67 15 134/63 98 04/22/17 00:07 72 04/21/17 23:26 20 04/21/17 22:53 85 04/21/17 21:50 98.3 19 183/96 99 04/21/17 20:24 85 18 176/81 99 Room Air 04/21/17 19:31 98 Nasal Cannula 2.00 04/21/17 18:39 95 20 201/108 98 04/21/17 16:13 82 19 174/72 98 Nasal Cannula 2 04/21/17 15:25 99 Nasal Cannula 2.00 04/21/17 15:22 98.0 81 18 197/96 98 Room Air 04/21/17 15:22 98.0 83 19 197/96 98 Nasal Cannula 2 04/21/17 15:22 98.0 81 19 197/96 100 04/21/17 15:22 98 Room Air 04/21/17 15:18 98.0 80 20 193/103 96 I/O 04/21/17 04/21/17 04/21/17 04/22/17 04/22/17 04/22/17 07:00 15:00 23:00 07:00 15:00 23:00 Intake Total 150 ml Output Total 250 ml Balance -100 ml Intake Oral 150 ml Output Urine Total 250 ml Physical Exam GENERAL: NAD, AAOx3 SKIN: Warm and dry. HEAD: Atraumatic. Normocephalic. EYES: Pupils equal and round. No scleral icterus. No injection or drainage. ENT: No nasal bleeding or discharge. Mucous membranes pink and moist. NECK: Trachea midline. No JVD. CARDIOVASCULAR: Regular rate and rhythm. RESPIRATORY: No accessory muscle use. Clear to auscultation. Breath sounds equal bilaterally. GASTROINTESTINAL: Abdomen soft, non-tender, nondistended. Hepatic and splenic margins not palpable. MUSCULOSKELETAL: Right lower extremity without clubbing, cyanosis, or edema. LLE AKA NEUROLOGICAL: Awake and alert. No obvious cranial nerve deficits. Motor grossly within normal limits. Five out of 5 muscle strength in the arms and legs. Normal speech. PSYCHIATRIC: Appropriate mood and affect; insight and judgment normal. Laboratory Laboratory Tests Test 04/21/17 04/21/17 04/21/17 04/22/17 14:20 17:45 20:10 03:15 White Blood Count 4.0 TH/MM3 Red Blood Count 5.29 MIL/MM3 Hemoglobin 13.9 GM/DL Bedside Hemoglobin 14.6 G/DL Hematocrit 41.9 % Bedside Hematocrit 43.0 % Mean Corpuscular Volume 79.2 FL Mean Corpuscular Hemoglobin 26.3 PG Mean Corpuscular Hemoglobin 33.2 % Concent Red Cell Distribution Width 14.1 % Platelet Count 166 TH/MM3 Mean Platelet Volume 9.2 FL Neutrophils (%) (Auto) 59.5 % Lymphocytes (%) (Auto) 30.6 % Monocytes (%) (Auto) 7.5 % Eosinophils (%) (Auto) 1.9 % Basophils (%) (Auto) 0.5 % Neutrophils # (Auto) 2.4 TH/MM3 Lymphocytes # (Auto) 1.2 TH/MM3 Monocytes # (Auto) 0.3 TH/MM3 Eosinophils # (Auto) 0.1 TH/MM3 Basophils # (Auto) 0.0 TH/MM3 CBC Comment DIFF FINAL Differential Comment Prothrombin Time 10.2 SEC Prothromb Time International 0.9 RATIO Ratio Activated Partial 26.8 SEC Thromboplast Time Bedside Sodium 137 MMOL/L Sodium Level 135 MEQ/L Bedside Potassium 3.4 MMOL/L Potassium Level 3.4 MEQ/L Bedside Chloride 99 MMOL/L Chloride Level 101 MEQ/L Carbon Dioxide Level 28.3 MEQ/L Anion Gap 6 MEQ/L Bedside Blood Urea Nitrogen 7 MG/DL Blood Urea Nitrogen 8 MG/DL Creatinine 1.29 MG/DL Bedside Creatinine 0.9 MG/DL Estimat Glomerular Filtration 69 ML/MIN Rate Bedside Glucose 490 MG/DL Random Glucose 434 MG/DL Calcium Level 8.4 MG/DL Magnesium Level 1.8 MG/DL Total Creatine Kinase 55 U/L Troponin I 0.03 NG/ML 0.05 NG/ML 0.05 NG/ML Urine Color LIGHT-YELLOW Urine Turbidity CLEAR Urine pH 7.0 Urine Specific [place] 1.023 Urine Protein TRACE mg/dL Urine Glucose (UA) 1000 mg/dL Urine Ketones NEG mg/dL Urine Occult Blood NEG Urine Nitrite NEG Urine Bilirubin NEG Urine Urobilinogen LESS THAN 2.0 MG/DL Urine Leukocyte Esterase SMALL Urine RBC LESS THAN 1 /hpf Urine WBC 2 /hpf Microscopic Urinalysis Comment CULT NOT INDICATED Urine Opiates Screen NEG Urine Barbiturates Screen NEG Urine Amphetamines Screen NEG Urine Benzodiazepines Screen NEG Urine Cocaine Screen NEG Urine Cannabinoids Screen NEG Assessment and Plan Problem List: (1) Chest pain, atypical (2) HIV (human immunodeficiency virus infection) (3) PVD (peripheral vascular disease) (4) Tobacco abuse (5) Hypertension (6) Hyperlipidemia (7) Accelerated hypertension Assessment and Plan 1) Atypical chest pain, relieved with morphine 2) Cardiac enzymes negative, recent myocardial nuclear negative 3) Blood pressure better, accelerated HTN on arrival most likely due to not having meds and using decongestion medication 4) 2D echo pending, if no serious problems on echo then cardiovascular stable for discharge Gallo Best DO Apr 22, 2017 13:39
--- NOTE | 2017-04-22 13:45 | EKG ---
Date Performed: 04/21/2017 Time Performed: 20:22:02 PTAGE: 61 years EKG: Sinus rhythm SEPTAL MYOCARDIAL INFARCTION Since PREVIOUS TRACING , no significant change noted PREVIOUS TRACIN04/21/2017 15.18 DOCTOR: José Miguel Urias Interpretating Date/Time 04/22/2017 13:44:07
--- NOTE | 2017-04-22 16:59 | ECHRPT ---
Indication: ACCELERATED HTN CONCLUSIONS Normal left ventricular size. Severe concentric left ventricular hypertrophy. LV ejection fraction mildly impaired in the 40's. Trace mitral valve regurgitation. Aortic valve sclerosis is present. There is trace tricuspid valve regurgitation. The estimated pulmonary arterial pressure is 25 mmHg. The pulmonary valve is not well visualized. BP: 141 / 67 HR: 61 Rhythm: Sinus MEASUREMENTS (Male / Female) Normal Values Technical Quality:Good 2D ECHO LV Diastolic Diameter PLAX 3.3 cm 4.2 - 5.9 / 3.9 - 5.3 cm LV Systolic Diameter PLAX 2.8 cm IVS Diastolic Thickness 1.6 cm 0.6 - 1.0 / 0.6 - 0.9 cm LVPW Diastolic Thickness 0.8 cm 0.6 - 1.0 / 0.6 - 0.9 cm LV Relative Wall Thickness 0.7 LA Systolic Diameter LX 3.5 cm 3.0 - 4.0 / 2.7 - 3.8 cm M-MODE Aortic Root Diameter MM 3.4 cm AV Cusp Separation MM 1.9 cm DOPPLER Mitral E Point Velocity 59.7 cm/s Mitral A Point Velocity 53.3 cm/s Mitral E to A Ratio 1.1 TR Peak Velocity 221.0 cm/s TR Peak Gradient 19.5 mmHg FINDINGS LEFT VENTRICLE Normal left ventricular size. Severe concentric left ventricular hypertrophy. LV ejection fraction mildly impaired in the 40's. RIGHT VENTRICLE Normal right ventricular size and systolic function. LEFT ATRIUM The left atrial size is normal. RIGHT ATRIUM The right atrial size is normal. ATRIAL SEPTUM Normal atrial septal thickness without atrial level shunting by limited color doppler interrogation. AORTA The aortic root and proximal ascending aorta are normal in size on limited imaging. MITRAL VALVE Trace mitral valve regurgitation. AORTIC VALVE Aortic valve sclerosis is present. TRICUSPID VALVE There is trace tricuspid valve regurgitation. The estimated pulmonary arterial pressure is 25 mmHg. PULMONARY VALVE The pulmonary valve is not well visualized. VESSELS The inferior vena cava is normal in size. PERICARDIUM No pericardial effusion. Meir Brown MD (Electronically Signed) Final Date:22 April 2017 16:58
--- NOTE | 2017-04-22 17:17 | HHI.DCPOC ---
Discharge Care Plan Diagnosis: (1) Chest pain Your Health Problems Are: Chest Pain Goals to Promote Your Health * To prevent worsening of your condition and complications * To maintain your health at the optimal level Directions to Meet Your Goals Take your medications as prescribed Follow your dietary instruction Follow activity as directed Keep your appointments as scheduled Take your immunizations and boosters as scheduled If your symptoms worsen call your PCP, if no PCP go to Urgent Care Center or Emergency Room Smoking is Dangerous to Your Health. Avoid second hand smoke Call the 24-hour hour crisis hotline for domestic abuse at Lucia Antoine MD Apr 22, 2017 17:17
== END 2017-04-22 20:33 | disposition home or self-care (01) ==
LOC: NEPE 14:52 → NEDA 18:02 → NEPFCDU 21:48
PROVIDERS: ADMIT Internal Medicine; ATTEND Internal Medicine
DX: R07.9 Chest pain, unspecified (principal); E11.65 Type 2 diabetes mellitus with hyperglycemia; I10 Essential (primary) hypertension; E78.5 Hyperlipidemia, unspecified; J44.9 Chronic obstructive pulmonary disease, unspecified; I73.9 Peripheral vascular disease, unspecified; F17.200 Nicotine dependence, unspecified, uncomplicated; Z79.899 Other long term (current) drug therapy; Z79.4 Long term (current) use of insulin; F14.21 Cocaine dependence, in remission; F12.21 Cannabis dependence, in remission; Z91.14 Patient's other noncompliance with medication regimen
CPT/HCPCS: 71010; 80048; 80307; 81001; 82435; 82550; 82565; 82947; 82948; 83735; 84132; 84295; 84484; 84520; 85025; 85610; 85730; 93005; 93306; 96365; 96375; 99285; G0378; J0360; J1644; J1815; J2270; J7030

== ENCOUNTER 2017-10-22 10:24 | Emergency (ER) | payer OTHER ==
[~2017-10-22] VITALS: Ht 172.7 cm; Wt 68.0 kg
[~2017-10-22 10:24] MED LIST changes: +ASPI-516 CHEW; -ASPI1TAB69 PO; -ASPI81CH CHEW; +AUGM875T3 PO; +DIFL150T PO; +DOLU1TAB PO; -EMTR1TAB PO; +NOVOLOGSS SQ; -OLAN2.5T PO; +OLAN2.5T7 PO; +TRUV200300 PO
[2017-10-22 10:35] VITALS: BP 163/82; PULSE 73; RESP 22; TEMP 98.8; O2SAT 98
--- NOTE | 2017-10-22 11:23 | RADRPT ---
EXAM DATE/TIME: 10/22/2017 11:10 [facility] COMPARISON: CHEST PA & LAT, August 02, 2015, 18:42. INDICATIONS : Chest pain. MEDICAL HISTORY : Hypertension. Diabetes mellitus type II. Smoker. SURGICAL HISTORY : None. ENCOUNTER: Initial ACUITY: 2 weeks PAIN SCORE: 7/10 LOCATION: chest midline. FINDINGS: PA and lateral views of the chest demonstrate the lungs to be symmetrically aerated without evidence of mass, infiltrate or effusion. The cardiomediastinal contours are unremarkable. Osseous structure s are intact. CONCLUSION: 1. No acute cardiopulmonary disease. Jameel Moyer MD on October 22, 2017 at 11:20 Board Certified Radiologist. This report was verified electronically.
[2017-10-22 11:34] LABS: AUTOMATED NEUTROPHIL # 2.3 TH/MM3 (1.8-7.7); BASOPHIL % 0.8 % (0.0-2.0); EOSINOPHIL # 0.1 TH/MM3 (0-0.4); EOSINOPHIL % 2.8 % (0.0-4.0); HEMATOCRIT 40.9 % (39.0-51.0); HEMOGLOBIN 13.7 GM/DL (13.0-17.0); LYMPH % 36.3 % (9.0-44.0); LYMPHOCYTE # 1.6 TH/MM3 (1.0-4.8); MEAN CELL VOLUME 78.7 FL (80.0-100.0); MEAN CORPUSCULAR HEMOGLOBIN 26.4 PG (27.0-34.0); MEAN CORPUSCULAR HGB CONC 33.6 % (32.0-36.0); MEAN PLATELET VOLUME 8.4 FL (7.0-11.0); MONOCYTE # 0.4 TH/MM3 (0-0.9); NEUT % 52.1 % (16.0-70.0); PLATELET COUNT 177 TH/MM3 (150-450); RED BLOOD COUNT 5.19 MIL/MM3 (4.50-5.90); RED CELL DISTRIBUTION WIDTH 14.1 % (11.6-17.2); WHITE BLOOD COUNT 4.5 TH/MM3 (4.0-11.0)
[2017-10-22 12:02] LABS: BLOOD UREA NITROGEN 12 MG/DL (7-18); CALCIUM 8.6 MG/DL (8.5-10.1); CHLORIDE 102 MEQ/L (98-107); CREATININE 1.02 MG/DL (0.60-1.30); GLOMERULAR FILTRATION RATE 90 ML/MIN (>89); GLUCOSE,RANDOM 275 MG/DL (74-106); SODIUM (NA) 135 MEQ/L (136-145); TROPONIN I 0.02 NG/ML (0.02-0.05)
--- NOTE | 2017-10-22 14:17 | PD ---
Data Data Last Documented VS Vital Signs Date Time Temp Pulse Resp B/P (MAP) Pulse Ox O2 Delivery O2 Flow Rate FiO2 10/22/17 14:34 74 18 189/99 (129) 97 Room Air 10/22/17 10:35 98.8 Orders Orders Electrocardiogram (10/22/17 10:47) Complete Blood Count With Diff (10/22/17 10:47) Basic Metabolic Panel (Bmp) (10/22/17 10:47) Ckmb (Isoenzyme) Profile (10/22/17 10:47) Troponin I (10/22/17 10:47) Chest, Pa & Lat (10/22/17 ) CKMB (10/22/17 11:20) CKMB% (10/22/17 11:20) Labs Laboratory Tests Test 10/22/17 11:20 White Blood Count 4.5 TH/MM3 Red Blood Count 5.19 MIL/MM3 Hemoglobin 13.7 GM/DL Hematocrit 40.9 % Mean Corpuscular Volume 78.7 FL Mean Corpuscular Hemoglobin 26.4 PG Mean Corpuscular Hemoglobin Concent 33.6 % Red Cell Distribution Width 14.1 % Platelet Count 177 TH/MM3 Mean Platelet Volume 8.4 FL Neutrophils (%) (Auto) 52.1 % Lymphocytes (%) (Auto) 36.3 % Monocytes (%) (Auto) 8.0 % Eosinophils (%) (Auto) 2.8 % Basophils (%) (Auto) 0.8 % Neutrophils # (Auto) 2.3 TH/MM3 Lymphocytes # (Auto) 1.6 TH/MM3 Monocytes # (Auto) 0.4 TH/MM3 Eosinophils # (Auto) 0.1 TH/MM3 Basophils # (Auto) 0.0 TH/MM3 CBC Comment DIFF FINAL Differential Comment Blood Urea Nitrogen 12 MG/DL Creatinine 1.02 MG/DL Random Glucose 275 MG/DL Calcium Level 8.6 MG/DL Sodium Level 135 MEQ/L Potassium Level 4.1 MEQ/L Chloride Level 102 MEQ/L Carbon Dioxide Level 30.0 MEQ/L Anion Gap 3 MEQ/L Estimat Glomerular Filtration Rate 90 ML/MIN Total Creatine Kinase 107 U/L Creatine Kinase MB 1.3 NG/ML Troponin I 0.02 NG/ML MDM Medical Record Reviewed: Yes Supervised Visit with SIVAN: No Narrative Course This report is in ERROR Please disregard this report and all prior copies ! This report is in ERROR Please disregard this report and all prior copies ! This report is in ERROR Please disregard this report and all prior copies ! Mikael Best MD Oct 22, 2017 14:17
[2017-10-22 14:34] VITALS: BP 189/99; PULSE 74; RESP 18; O2SAT 97
--- NOTE | 2017-10-22 14:52 | PD ---
HPI Chief Complaint: Chest Pain Time Seen by Provider: 14:02 Travel History International Travel<30 days: No Contact w/Intl Traveler<30days: No Traveled to known affect area: No History of Present Illness HPI Patient arrives with a history of chest pain and cough. He has had a for about 3 days. He reports noncompliance with medications for 6 months. He denies fever. He follows the family medicine residents. Last visit was about 3 weeks ago. Chest pain onset at rest. No exertional component. No shortness of breath. PFSH Past Medical History Hx Anticoagulant Therapy: Yes Asthma: Yes Autoimmune Disease: Yes (hiv+) Blood Disorders: No Heart Rhythm Problems: No Cancer: No Cardiac Catheterization: No Cardiovascular Problems: Yes High Cholesterol: Yes Chest Pain: Yes Congestive Heart Failure: No COPD: Yes Coronary Artery Disease: Yes Diabetes: Yes Patient Takes Glucophage: No Diminished Hearing: No Endocrine: Yes Gastrointestinal Disorders: Yes (colostomy and reversal) Genitourinary: No Heparin Induced Thrombocytopen: No Hypertension: Yes Immune Disorder: Yes Implanted Vascular Access Dvce: No Musculoskeletal: Yes (LEFT BKA) Neurologic: No Psychiatric: No Reproductive: No Respiratory: Yes (COPD) Immunizations Current: Yes Sleep Apnea: No Thyroid Disease: No Past Surgical History Abdominal Surgery: Yes (abd cyst removed 2008, BOWEL RESECTION, COLOSTOMY AND REVERSAL) Coronary Artery Bypass Graft: No Other Surgery: Yes (L BKA) Family History Family Myocardial Infarction: Yes Social History Alcohol Use: Yes (OCCASIONALLY) Tobacco Use: Yes (OCC) Substance Use: No Allergies-Medications (Allergen,Severity, Reaction): Coded Allergies: red dye (Unverified Allergy, Severe, Bradycardia, 09/23/17) Reported Meds & Prescriptions Reported Meds & Active Scripts Active Tivicay (Dolutegravir Sodium) 50 Mg Tab 50 Mg PO DAILY Augmentin (Amoxicillin-Clavulanate) 875-125 Mg Tab 1 Tab PO BID Diflucan (Fluconazole) 150 Mg Tab 150 Mg PO ONCE Lantus Inj (Insulin Glargine) 1,000 Unit/10 Ml Vial 20 Units SQ BID Olanzapine 2.5 Mg Tab 2.5 Mg PO HS Protonix (Pantoprazole Sodium) 40 Mg Tab 40 Mg PO DAILY Aspirin 81 Mg Chew 81 Mg CHEW DAILY Trazodone (Trazodone HCl) 50 Mg Tab 50 Mg PO HS Truvada (Emtricitabine-Tenofovir Disoproxil Fumarate) 200-300 Mg Tab 1 Tab PO DAILY Advair Diskus Inh (Fluticasone-Salmeterol Inh) 100-50 Mcg/Blist Aer 1 Puff INH BID Rinse mouth after use. Insulin Syringe/0.5ML/31G X 02/26" 1 Mis Mis 1 Box .XX DIRECTED Amlodipine (Amlodipine Besylate) 10 Mg Tab 10 Mg PO DAILY Lisinopril 40 Mg Tab 40 Mg PO DAILY Metoprolol Tartrate 100 Mg Tab 100 Mg PO BID Nicoderm CQ Patch (Nicotine) 7 Mg/24 Hr Patch 7 Mg T-DERMAL DAILY [place] (Hydrocodone-Acetaminophen) 5-325 mg Tab 1-2 Tab PO Q12HR PRN Atorvastatin (Atorvastatin Calcium) 40 Mg Tab 40 Mg PO HS Novolog Inj (Insulin Aspart) 100 Unit/Ml Inj 1 Unit SQ ACHS SLIDING SCALE 30 Days accu-check AC/HS with Novolog sliding scale coverage; 150-200 two units 201-250 four units 251-300 six units 301-350 eight units 351-400 ten units inform PCP if < 70 or > 400. Blood Glucose Monitoring W/Device (Device) 1 Kit Kit 1 Kit .ROUTE DIRECTED Depend Silhouette Briefs 1 Mis Mis 1 Ea .ROUTE DIRECTED Wheelchair (Device) 1 Mis Mis 1 Ea .ROUTE DIRECTED Review of Systems Except as stated in HPI: all other systems reviewed are Neg General / Constitutional: No: Fever Physical Exam Narrative GENERAL: 61 yo male well-nourished well-developed sentences resting comfortably in bed, occasional cough SKIN: Warm and dry. HEAD: Atraumatic. Normocephalic. EYES: Pupils equal and round. No scleral icterus. No injection or drainage. ENT: No nasal bleeding or discharge. Mucous membranes pink and moist. NECK: Trachea midline. No JVD. CARDIOVASCULAR: Regular rate and rhythm. RESPIRATORY: No accessory muscle use. Clear to auscultation. Breath sounds equal bilaterally. GASTROINTESTINAL: Abdomen soft, non-tender, nondistended. Hepatic and splenic margins not palpable. MUSCULOSKELETAL: Extremities without clubbing, cyanosis, or edema. Left lower extremity BKA. NEUROLOGICAL: Awake and alert. No obvious cranial nerve deficits. Motor grossly within normal limits. Five out of 5 muscle strength in the arms and legs. Normal speech. PSYCHIATRIC: Appropriate mood and affect; insight and judgment normal. Data Data Last Documented VS Vital Signs Date Time Temp Pulse Resp B/P (MAP) Pulse Ox O2 Delivery O2 Flow Rate FiO2 10/22/17 14:34 74 18 189/99 (129) 97 Room Air 10/22/17 10:35 98.8 VS reviewed Orders Orders Electrocardiogram (10/22/17 10:47) Complete Blood Count With Diff (10/22/17 10:47) Basic Metabolic Panel (Bmp) (10/22/17 10:47) Ckmb (Isoenzyme) Profile (10/22/17 10:47) Troponin I (10/22/17 10:47) Chest, Pa & Lat (10/22/17 ) CKMB (10/22/17 11:20) CKMB% (10/22/17 11:20) Labs Laboratory Tests Test 10/22/17 11:20 White Blood Count 4.5 TH/MM3 Red Blood Count 5.19 MIL/MM3 Hemoglobin 13.7 GM/DL Hematocrit 40.9 % Mean Corpuscular Volume 78.7 FL Mean Corpuscular Hemoglobin 26.4 PG Mean Corpuscular Hemoglobin Concent 33.6 % Red Cell Distribution Width 14.1 % Platelet Count 177 TH/MM3 Mean Platelet Volume 8.4 FL Neutrophils (%) (Auto) 52.1 % Lymphocytes (%) (Auto) 36.3 % Monocytes (%) (Auto) 8.0 % Eosinophils (%) (Auto) 2.8 % Basophils (%) (Auto) 0.8 % Neutrophils # (Auto) 2.3 TH/MM3 Lymphocytes # (Auto) 1.6 TH/MM3 Monocytes # (Auto) 0.4 TH/MM3 Eosinophils # (Auto) 0.1 TH/MM3 Basophils # (Auto) 0.0 TH/MM3 CBC Comment DIFF FINAL Differential Comment Blood Urea Nitrogen 12 MG/DL Creatinine 1.02 MG/DL Random Glucose 275 MG/DL Calcium Level 8.6 MG/DL Sodium Level 135 MEQ/L Potassium Level 4.1 MEQ/L Chloride Level 102 MEQ/L Carbon Dioxide Level 30.0 MEQ/L Anion Gap 3 MEQ/L Estimat Glomerular Filtration Rate 90 ML/MIN Total Creatine Kinase 107 U/L Creatine Kinase MB 1.3 NG/ML Troponin I 0.02 NG/ML MDM Medical Decision Making Medical Screen Exam Complete: Yes Emergency Medical Condition: Yes Medical Record Reviewed: Yes Differential Diagnosis NSTEMI, unstable angina, coronary vasospasm, PE, PTX, aortic dissection, pericarditis, myocarditis, endocarditis, PNA, esophageal disease, aneurysm, musculoskeletal etiologies, anxiety, cocaine/sympathomimetic abuse Narrative Course EKG shows ST elevations in multiple leads unchanged from prior EKGs including reciprocal changes. Heart rate 75 CBC & BMP Diagram 10/22/17 11:20 Calcium Level 8.6 Last Impressions Chest X-Ray 10/22/17 0000 Signed Impressions: Service Date/Time: Sunday, October 22, 2017 11:10 - CONCLUSION: 1. No acute cardiopulmonary disease. Jameel Moyer MD The case was discussed with him the medicine residents will arrange to see the patient as an outpatient in the office in the next 1-2 days. although the patient has multiple comorbidities inpatient stay is unlikely to yield significant advantage for the patient.. Patient agreeable with plan Diagnosis Primary Impression: Chest pain, atypical Additional Impression: Cough Referrals: Steve Bucio MD, R3 1 day Med/Other Pt SpecificInfo: Prescription(s) given Scripts Albuterol 6.7 GM Inh (Proventil Hfa 6.7 GM Inh) 90 Mcg/Act Aer 2 PUFF INH Q6H Y for SHORTNESS OF BREATH, #1 INHALER 0 Refills Prov: Mikael Best MD 10/22/17 Azithromycin (Azithromycin) 250 Mg Tab 250 MG PO DIRECTED for Infection, #6 TAB 0 Refills Take 2 tabs (500 mg) on day 1 then 1 tab daily x 4 days. Prov: Mikael Best MD 10/22/17 Disposition: 01 DISCHARGE HOME Condition: Stable Mikael Best MD Oct 22, 2017 14:52
[2017-10-22] MEDS ORDERED: ALBU6.7H INH (15:16)
[2017-10-22] MEDS ORDERED: AZIT250T3 PO (15:16)
[2017-10-22 15:58] VITALS: BP 184/86
--- NOTE | 2017-10-22 16:29 | EKG ---
Date Performed: 10/22/2017 Time Performed: 11:49:13 PTAGE: 61 years EKG: Sinus rhythm ANTEROSEPTAL MYOCARDIAL INFARCTION, OLD DIFFUSE ST-T CHANGES PREVIOUS TRACING : 04/21/2017 20.22 Compared to prior tracing no significant change DOCTOR: Kimmy Casanova Interpretating Date/Time 10/22/2017 16:29:02
[2017-10-24] MEDS ORDERED: GABA800T PO (09:17)
[2017-10-24] MEDS ORDERED: ATOR40TA16 PO (09:17)
[2017-10-24] MEDS ORDERED: BLOOD GLUCOSE M1 KIT (09:17)
[2017-10-24] MEDS ORDERED: HYDR-3366 PO (09:17)
[2017-10-24] MEDS ORDERED: METF-382 PO (09:17)
== END 2017-10-22 18:57 | disposition home or self-care (01) ==
LOC: NEPE 10:24 → NEDAMB 18:57
DX: R07.89 Other chest pain (principal); R05 Cough; E78.00 Pure hypercholesterolemia, unspecified; I10 Essential (primary) hypertension; E11.9 Type 2 diabetes mellitus without complications; I25.10 Atherosclerotic heart disease of native coronary artery without angina pectoris; J44.9 Chronic obstructive pulmonary disease, unspecified; Z91.14 Patient's other noncompliance with medication regimen; Z79.899 Other long term (current) drug therapy; Z21 Asymptomatic human immunodeficiency virus [HIV] infection status
CPT/HCPCS: 71046; 80048; 82550; 82552; 84484; 85025; 93005; 99285